=== PATIENT | male | born 1945 | race Caucasian/White ===

== ENCOUNTER → 2016-12-17 | Outpatient (CLI) | payer OTHER, MEDICARE ==
[2016-12-17 13:30] LABS: ALT/SGPT 36 U/L (12-78); BLOOD UREA NITROGEN 15 mg/dl (7-18); BUN/CREATININE RATIO 13.5 (10-20); CARBON DIOXIDE 24 mmol/L (21-32); CHLORIDE 109 mmol/L (98-107); CHOLESTEROL 145 mg/dl (0-200); GLUCOSE,FASTING 111 mg/dl (70-99); SODIUM 140 mmol/L (136-145)
[2016-12-17 13:41] LABS: ALB/GLOB RATIO 1.1 (0.9-2); ALKALINE PHOSPHATASE 58 U/L (45-117); AST/SGOT 23 U/L (15-37); CHOLESTEROL/HDL RATIO 3.1; HDL CHOLESTEROL 47 mg/dl; LDL CHOLESTEROL CALCULATED 81 mg/dl; TRIGLYCERIDES 83 mg/dl (0-150); VERY LOW DENSITY LIPOPROT CALC 17 mg/dl
== END | disposition home or self-care (01) ==
LOC: EDSEX → C.LABPBG 07:59
PROVIDERS: ATTEND Physician Assistant
DX: Z00.00 Encounter for general adult medical examination without abnormal findings (principal); E03.9 Hypothyroidism, unspecified; E55.9 Vitamin D deficiency, unspecified

== ENCOUNTER → 2016-12-21 | Outpatient (CLI) | payer OTHER, MEDICARE ==
[2016-12-21 12:45] LABS: ESTIMATED AVERAGE GLUCOSE 123 mg/dl; HA1C FLAG Normal (Normal)
== END | disposition home or self-care (01) ==
LOC: EDSEX → C.LABPBG 08:06
PROVIDERS: ATTEND Physician Assistant
DX: R73.01 Impaired fasting glucose (principal)

== ENCOUNTER → 2017-05-14 | Outpatient (CLI) | payer OTHER, MEDICARE ==
[2017-05-14 13:19] LABS: ALT/SGPT 33 U/L (12-78); AST/SGOT 22 U/L (15-37); BLOOD UREA NITROGEN 14 mg/dl (7-18); CALCIUM 9.1 mg/dl (8.5-10.1); CARBON DIOXIDE 26 mmol/L (21-32); CREATININE 1.15 mg/dl (0.60-1.40); GLUCOSE,FASTING 103 mg/dl (70-99); SODIUM 138 mmol/L (136-145); TOTAL PROTEIN 7.6 gm/dl (6.4-8.2)
[2017-05-14 13:30] LABS: ALKALINE PHOSPHATASE 63 U/L (45-117); CHOLESTEROL 124 mg/dl (0-200); LDL CHOLESTEROL CALCULATED 53 mg/dl
== END | disposition home or self-care (01) ==
LOC: C.LABPBG 07:50
PROVIDERS: ATTEND Physician Assistant
DX: Z00.00 Encounter for general adult medical examination without abnormal findings (principal); E78.5 Hyperlipidemia, unspecified; E03.9 Hypothyroidism, unspecified

== ENCOUNTER 2023-11-10 11:45 | Inpatient (IN) ==
--- NOTE | 2023-11-10 12:27 | XRay Report ---
XR chest 1V portable HISTORY: 78 years-old Male Sepsis COMPARISON: None TECHNIQUE: AP view of the chest FINDINGS: Cardiomediastinal and hilar silhouettes are within normal limits. No pneumothorax or pleural effusion . Bones appear grossly intact. Spondylitic spurring of the spine. IMPRESSION: No acute process. ACT 112: Negative or not required by law. The above report was generated using voice recognition software. It may contain grammatical, syntax o r spelling errors. Electronically signed by: Ilan Washington M.D. 11/10/2023 12:26 PM
--- NOTE | 2023-11-10 12:44 | Emergency Department Note ---
Impression & Plan Acute confusion, Hallucinations, DONALDO (acute kidney injury), Acute dehydration, Acute UTI ED Provider Note NAME: SHAILA LAMBERT AGE: 78 SEX: M : 1945 ARRIVES VIA: Walk-In INFORMANT: [Patient][daughter] ED PROVIDER(S): [Victor Manuel Martinez MD] CHIEF COMPLAINT: Urinary symptoms, hallucinating HISTORY OF PRESENT ILLNESS: The patient is a 78-year-old male whose had some confusion for about a month and then some hallucinations in the last week. His family and neighbors have noticed that he is seeing things that are not present. He is convinced that the things are real. Patient denies one-sided weakness, he does not have any urinary complaints really. There is no cough or congestion or shortness of breath. No headache. No diarrhea. He has no history of dementia. The patient went to the doctor's office, given the hallucinations, he was referred to the ER, there was concern for UTI based on a urine dip. There is no new prescribed medication or [id number] medication use. PMHx/PSHx/Social Hx: See Below PHYSICAL EXAM: GENERAL: Patient is in no acute distress. HEENT: No acute trauma, normocephalic atraumatic, mucous membranes dry, no nasal congestion. NECK: No stridor, no adenopathy, no meningismus, trachea is midline. LUNGS: Clear to auscultation bilaterally, no wheeze, no rhonchi, breath sounds equal. HEART: Without murmurs gallops or rubs, regular rate and rhythm. ABDOMEN: Soft, nontender, no peritonitis. EXTREMITIES: No cyanosis, full range of motion of all the joints without pain or difficulty. NEUROLOGIC: Awake and alert, no acute motor or sensory deficits, no focal weakness. No speech slur or facial droop, no extremity drift or cerebellar dysfunction. SKIN: No jaundice, no diaphoresis. DIFFERENTIAL DIAGNOSIS: Dehydration, intracranial bleed or mass, UTI, anemia, electrolyte imbalance, among others. EMERGENCY DEPARTMENT PROCEDURES: MEDICAL DECISION MAKING: There is no leukocytosis or concerning anemia. There is a normal platelet count. No coagulopathy. There is evidence for acute kidney injury with a creatinine of 2.11. No electrolyte abnormality in need of emergent correction. Lactic acid level is not elevated making severe sepsis less likely. There is no concerning liver enzyme elevation. Procalcitonin is not elevated. Urinalysis does not suggest infection. Brain CT shows no acute bleed or mass effect. ECG shows a sinus rhythm, PVCs were seen. No acute ST elevation. Cardiac enzyme testing x 1 is not consistent with acute cardiac injury. Chest x-ray did not show pneumonia or CHF. Abdominal and pelvis CT results are pending. On exam, patient was adamant that what he was seeing was real--he did not feel he was hallucinating. He was not febrile, he was not toxic. The patient received 2 L of IV saline for hydration. He was given IV ceftriaxone as antibiotic therapy. Given the confusion, hallucinations, the acute kidney injury and the UTI, I do think a hospital stay is warranted. I spoke with the patient and his daughter, I did speak with case management. The on-call hospitalist was consulted. Certainly, the UTI coupled with the acute kidney injury may be leading to his confusion/hallucinations. Prior/Outside records/notes reviewed: Today's outpatient family practice notes describing his presentation and the concern for infection/UTI. ECG per my interpretation: Indication was confusion. The ECG shows a sinus rhythm with some occasional PVCs. The rate is 91. There is no acute ST elevation, QTc is 440. Continuous Cardiac Monitoring per my interpretation: An order was placed for continuous cardiac monitoring. The monitor shows a rate of 97 with normal sinus rhythm. Imaging/x-ray results per my interpretation: Chest x-ray does not show pneumonia, CHF or pneumothorax. Chronic Medical/Social conditions affecting care: Advanced age. Care/Management discussed with: Case management, the on-call hospitalist. Level of care consideration(s): After review of the information above and other included data: --I believe the patient requires escalation of care to admission DISPOSITION: Admission Past Med/Surg History Problem List (Updated 11/10/23 @ 15:37 by Victor Manuel Martinez MD) Acute UTI (Acute) Acute dehydration (Acute) DONALDO (acute kidney injury) (Acute) Hallucinations (Acute) Acute confusion (Acute) Dysfunction of right eustachian tube Tinnitus of left ear Sensorineural hearing loss (SNHL) of right ear with restricted hearing of left ear Vitamin D deficiency Prediabetes Hypothyroidism Hypertension Hyperlipidemia Medical History History of gout Surgical History History of hand surgery History of surgery on arm Family History Father Hypertension Myocardial infarction, Onset Age: 52 Coronary heart disease Brother Diabetes Hypertension Kidney disease Dementia Mother Gallbladder disease Hypertension Aunt Breast cancer, Onset Age: 60 Denies family history of Ovarian cancer Prostate cancer Colorectal cancer Social History Smoking Status: Never smoker Second Hand Exposure: No; Do You Dip or Chew Tobacco: No; Hx Alcohol Use: No Hx Substance Use: No Preferred Language: Montenegrin Communication Ability: Effective Visual Impairment: No Limitations Hearing Ability: Normal 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 Beliefs That Will Affect Care: None marital status: Current Living Situation: Alone current occupational status: retired current occupation: banker Feels Safe at Home: Yes Diet: regular Diet Comment: regular caffeine: Yes (Coffee 1 cup per day.) during the past year weight has: remained stable Dental Care, Regularly: Yes Physical Activity Frequency: Daily Seatbelt Use: always Sunscreen Use: Yes Allergies Allergies Allergy/AdvReac Type Severity Reaction Status Date / Time No Known Drug Allergies Allergy Verified 11/10/23 10:29 Home Meds Home Medications Medication Instructions Recorded Confirmed cholecalciferol (vitamin D3) 125 5,000 units PO DAILY #90 tabs 01/08/19 11/10/23 mcg (5,000 unit) tablet Previous Rx's Medication Instructions Recorded amlodipine 10 mg tablet 10 mg PO DAILY #90 tabs 08/20/23 benazepril 40 mg tablet 40 mg PO DAILY #90 tabs 08/20/23 levothyroxine 50 mcg tablet 50 mcg PO DAILY #90 tabs 08/20/23 metoprolol tartrate 25 mg tablet 25 mg PO BID #180 tabs 08/20/23 rosuvastatin 10 mg tablet 10 mg PO DAILY #90 tabs 08/20/23 Results & Data (ED) Vital Signs Vital Signs - 24 hr 11/10/23 11:54 11/10/23 13:00 Temperature 36.3 C L Temperature Source Temporal Artery Scan Pulse Rate 97 H 75 Respiratory Rate 16 Respiratory Effort / Characteristics Non-Labored Respiratory Depth Normal Blood Pressure 130/79 Blood Pressure Mean 96 Pulse Oximetry 96 Oxygen Delivery Method Room Air Sepsis Recent Fever Within 48 Hours No Sepsis New/Unexplained Change in Mental Status No Sepsis Action Taken by Nursing No Action Required Home Medications Current Medication List: was personally reviewed by me Laboratory Data Attestation: I reviewed the patient's lab results. 11/10/23 12:18 11/10/23 12:18 Lab Results 11/10/23 11/10/23 Range/Units 12:18 14:07 WBC 8.68 (4.8-10.8) K/ul RBC 5.28 (4.70-6.10) M/uL Hgb 15.1 (14.0-18.0) g/dl Hct 45.9 (42.0-52.0) % MCV 86.9 (80.0-100.0) fL MCH 28.6 (25.0-34.0) pg MCHC 32.9 (32.0-36.0) g/dL RDW Std Deviation 45.9 (36.4-46.3) fL RDW Coeff of Ezequiel 14.4 (11.5-14.5) % Plt Count 260 (130-400) K/uL MPV 9.5 (9.4-12.4) fL Immature Gran % (Auto) 0.5 % Neut % (Auto) 61.5 % Lymph % (Auto) 28.2 % [place] % (Auto) 8.2 % Eos % (Auto) 0.8 % Baso % (Auto) 0.8 % Neut # (Auto) 5.34 (1.40-6.50) K/uL Lymph # (Auto) 2.45 (1.20-3.40) K/uL [place] # (Auto) 0.71 H (0.11-0.59) K/uL Eos # (Auto) 0.07 (0.00-0.50) K/uL Baso # (Auto) 0.07 (0.00-0.20) K/uL Immature Gran # (Auto) 0.04 (0.01-0.20) K/uL PT 11.4 (9.0-12.0) Seconds INR 1.1 (0.9-1.1) APTT 24 (21-31) Seconds PTT Ratio 0.9 Sodium 139 (136-145) mmol/L Potassium 3.9 (3.5-5.1) mmol/L Chloride 104 (98-107) mmol/L Carbon Dioxide 23 (21-32) mmol/L Anion Gap 12 H (3-11) BUN 27 H (6-23) mg/dl Creatinine 2.11 H (0.6-1.4) mg/dl Est Cr Clr Drug Dosing 34.5 ml/min Est GFR ( Amer) 34.2 ml/min Est GFR (Non-Af Amer) 29.5 ml/min BUN/Creatinine Ratio 12.8 (10-20) Glucose 116 H (70-99(Fasting)) mg/dl Lactate 1.3 (0.4-2.0) mmol/L Calcium 10.1 (8.6-10.3) mg/dl Magnesium 2.0 (1.7-2.4) mg/dl Total Bilirubin 1.0 (0.2-1.0) mg/dl AST 23 (13-39) U/L ALT 15 (7-52) U/L Alkaline Phosphatase 65 (34-104) U/L Troponin I High Sens 4.9 (0-20) pg/ml Total Protein 8.4 H (6.0-8.3) gm/dl Albumin 5.0 (3.4-5.0) gm/dl Globulin 3.4 (2.5-4.0) gm/dl Albumin/Globulin Ratio 1.5 (0.9-2) Procalcitonin 0.12 (0-0.5) ng/ml Urine Color Yellow Urine Appearance Turbid A (Clear) Urine pH 5.5 (4.5-7.5) Ur Specific [place] 1.012 (1.000-1.030) Urine Protein Trace H (Negative) Urine Glucose (UA) Negative (Negative) Urine Ketones Trace H (Negative) Urine Blood 2+ H (Negative) Urine Nitrite Positive A (Negative) Urine Bilirubin Negative (Negative) Urine Urobilinogen Negative (Negative) Ur Leukocyte Esterase 3+ H (Negative) Urine WBC (Auto) >50 H (0-5) /hpf Urine RBC (Auto) 0-2 (0-2) /hpf U Hyaline Cast (Auto) 6-10 H (0-2) /lpf U Epithel Cells (Auto) 0-2 (0-2) /hpf Urine Bacteria (Auto) 4+ H (None Seen) Urine Yeast Present A (None Prsent) Administered Medications Discontinued Medications Sodium Chloride (Nss) 500 mls @ 999 mls/hr IV .Q31M ONE Stop: 11/10/23 12:58 Last Infusion: 11/10/23 14:01 Dose: Infused Documented By: [facility] Admin: 11/10/23 12:55 Dose: 999 mls/hr Documented By: [facility] Sodium Chloride (Nss) 500 mls @ 999 mls/hr IV .Q31M ONE Stop: 11/10/23 13:09 Last Infusion: 11/10/23 14:01 Dose: Infused Documented By: [facility] Admin: 11/10/23 12:55 Dose: 999 mls/hr Documented By: [facility] Sodium Chloride (Nss) 1,000 mls @ 999 mls/hr IV .Q1H1M ONE Stop: 11/10/23 14:48 Last Admin: 11/10/23 14:06 Dose: 999 mls/hr Documented By: [facility] Imaging Data Radiologist's Impression: Chest X-Ray 11/10/23 12:00 XR chest 1V portable HISTORY: 78 years-old Male Sepsis COMPARISON: None TECHNIQUE: AP view of the chest FINDINGS: Cardiomediastinal and hilar silhouettes are within normal limits. No pneumothorax or pleural effusion. Bones appear grossly intact. Spondylitic spurring of the spine. IMPRESSION: No acute process. ACT 112: Negative or not required by law. The above report was generated using voice recognition software. It may contain grammatical, syntax or spelling errors. Electronically signed by: Ilan Washington M.D. 11/10/2023 12:[address] 11/10/23 12:28 CT SCAN OF THE BRAIN WITHOUT IV CONTRAST CLINICAL HISTORY: Change in mental status. Hallucinations. COMPARISON STUDY: No priors. TECHNIQUE: Unenhanced axial CT scan of the brain is performed from the vertex to the skull base. A dose lowering technique was utilized adhering to the principles of ALARA. CT DOSE: 625.8 mGy.cm FINDINGS: Brain parenchyma: There is age-related involutional change noting minimal microangiopathic disease. There is no hemorrhage, mass effect, or evidence of acute territorial ischemia by CT criteria. Dobson-white matter differentiation is preserved. No extra-axial fluid collection is seen. Ventricles, sulci, cisterns: Prominent secondary to involutional change. Intracranial vasculature: There is atherosclerotic calcification of the cavernous carotid and vertebral arteries. Calvarium: Unremarkable. Sinuses and mastoids: The visualized paranasal sinuses are clear. The mastoid air cells are well pneumatized. Orbits: The bony orbits are grossly intact. IMPRESSION: There is no hemorrhage, mass effect, or evidence of acute territorial ischemia by CT criteria. ACT 112: Negative or not required by law. Electronically signed by: Victor Manuel Rg M.D. 11/10/2023 12:59 PM Discharge Plan Visit Data Chief Complaint: Urinary Symptoms Stated Complaint: HALLUCINATING, UTI , REF BY DOC ED Provider: Victor Manuel Martinez Discharge Problem: Acute confusion, Hallucinations, DONALDO (acute kidney injury), Acute dehydration, Acute UTI Patient Disposition: Admitted As Inpatient Condition: Fair Forms Stand Alone Forms: [facility] [employer] Prescriptions Prescriptions: No Action amlodipine 10 mg tablet 10 mg PO DAILY Qty: 90 3RF benazepril 40 mg tablet 40 mg PO DAILY Qty: 90 3RF levothyroxine 50 mcg tablet 50 mcg PO DAILY Qty: 90 1RF metoprolol tartrate 25 mg tablet 25 mg PO BID Qty: 180 3RF rosuvastatin 10 mg tablet 10 mg PO DAILY Qty: 90 3RF cholecalciferol (vitamin D3) 5,000 unit tablet 5,000 units PO DAILY Qty: 90 Referrals Referrals: Erica Ybarra DO [Primary Care Provider] -
[2023-11-10 12:55] LABS: Basophils # (auto) 0.07 K/uL (0.00-0.20); Basophils % (auto) 0.8 %; Eosinophils # (auto) 0.07 K/uL (0.00-0.50); Eosinophils % (auto) 0.8 %; Hematocrit (blood only) 45.9 % (42.0-52.0); Hemoglobin 15.1 g/dl (14.0-18.0); Immature Granulocytes # (auto) 0.04 K/uL (0.01-0.20); Immature Granulocytes % (auto) 0.5 %; Lymphocytes # (auto) 2.45 K/uL (1.20-3.40); Lymphocytes % (auto) 28.2 %; Mean Corpuscular Hemoglobin 28.6 pg (25.0-34.0); Mean Corpuscular Hgb Conc 32.9 g/dL (32.0-36.0); Mean Corpuscular Volume 86.9 fL (80.0-100.0); Mean Platelet Volume 9.5 fL (9.4-12.4); Monocytes # (auto) 0.71 K/uL (0.11-0.59); Monocytes % (auto) 8.2 %; Neutrophils # (auto) 5.34 K/uL (1.40-6.50); Neutrophils % (auto) 61.5 %; Platelet Count 260 K/uL (130-400); RDW Coefficient of Variation 14.4 % (11.5-14.5); RDW Standard Deviation 45.9 fL (36.4-46.3); Red Blood Count 5.28 M/uL (4.70-6.10); White Blood Count 8.68 K/ul (4.8-10.8)
[2023-11-10] MEDS: SODIUM CHLORIDE 0.9% 500 ML IV ONE ×2 (12:55)
--- NOTE | 2023-11-10 12:57 | Electrocardiogram Report ---
Test Reason : Blood Pressure : / mmHG Vent. Rate : 091 BPM Atrial Rate : 091 BPM P-R Int : 164 ms QRS Dur : 090 ms QT Int : 358 ms P-R-T Axes : 053 -04 022 degrees QTc Int : 440 ms Sinus rhythm with occasional Premature ventricular complexes Otherwise normal ECG No previous ECGs available Confirmed by Sherman Chang ([id number]) on 11/10/2023 12:57:01 PM Referred By: Confirmed By:Dominguez Chang
--- NOTE | 2023-11-10 13:01 | CT Scan Report ---
CT SCAN OF THE BRAIN WITHOUT IV CONTRAST CLINICAL HISTORY: Change in mental status. Hallucinations. COMPARISON STUDY: No priors. TECHNIQUE: Unenhanced axial CT scan of the brain is performed from the vertex to the skull base. A do se lowering technique was utilized adhering to the principles of ALARA. CT DOSE: 625.8 mGy.cm FINDINGS: Brain parenchyma: There is age-related involutional change noting minimal microangiopathic disease. T here is no hemorrhage, mass effect, or evidence of acute territorial ischemia by CT criteria. Dobson-wh ite matter differentiation is preserved. No extra-axial fluid collection is seen. Ventricles, sulci, cisterns: Prominent secondary to involutional change. Intracranial vasculature: There is atherosclerotic calcification of the cavernous carotid and vertebr al arteries. Calvarium: Unremarkable. Sinuses and mastoids: The visualized paranasal sinuses are clear. The mastoid air cells are well pneu matized. Orbits: The bony orbits are grossly intact. IMPRESSION: There is no hemorrhage, mass effect, or evidence of acute territorial ischemia by CT [facility]. ACT 112: Negative or not required by law. Electronically signed by: Victor Manuel Rg M.D. 11/10/2023 12:59 PM
[2023-11-10 13:08] LABS: INR 1.1 (0.9-1.1); Partial Thromboplastin Ratio 0.9; Partial Thromboplastin Time 24 Seconds (21-31); Prothrombin Time 11.4 Seconds (9.0-12.0)
[2023-11-10 13:13] LABS: Alanine Aminotransferase 15 U/L (7-52); Albumin Globulin Ratio 1.5 (0.9-2); Alkaline Phosphatase 65 U/L (34-104); Anion Gap 12 (3-11); Aspartate Aminotransferase 23 U/L (13-39); BUN Creatinine Ratio 12.8 (10-20); Blood Urea Nitrogen 27 mg/dl (6-23); Calcium 10.1 mg/dl (8.6-10.3); Carbon Dioxide 23 mmol/L (21-32); Chloride 104 mmol/L (98-107); Creatinine Clr Calc Pharmacy 34.5 ml/min; Est GFR (African American) 34.2 ml/min; Est GFR (Non-African American) 29.5 ml/min; Globulin 3.4 gm/dl (2.5-4.0); Glucose 116 mg/dl (70-99(Fasting)); Potassium 3.9 mmol/L (3.5-5.1); Sodium 139 mmol/L (136-145); Total Protein 8.4 gm/dl (6.0-8.3)
[2023-11-10 13:19] LABS: Troponin I High Sensitivity 4.9 pg/ml (0-20)
[2023-11-10] MEDS: SODIUM CHLORIDE 0.9% 1,000 ML IV ONE (14:06)
[2023-11-10 14:52] LABS: Appearance Urine Turbid (Clear); Bacteria Urine Automated 4+ (None Seen); Bilirubin Urine Negative (Negative); Blood Urine 2+ (Negative); Color Urine Yellow; Epithelial Cell Urine Auto 0-2 /hpf (0-2); Glucose Urine UA Negative (Negative); Ketones Urine Trace (Negative); Leukocyte Esterase Urine 3+ (Negative); Nitrite Urine Positive (Negative); Protein Urine Trace (Negative); RBC Urine Automated 0-2 /hpf (0-2); Specific Gravity Urine 1.012 (1.000-1.030); Urobilinogen Urine Negative (Negative); WBC Urine Automated >50 /hpf (0-5); pH Urine 5.5 (4.5-7.5)
[2023-11-10] MEDS: cefTRIAXone SODIUM 2,000 MG/50 ML BAG IV STA (16:01)
--- NOTE | 2023-11-10 16:29 | History & Physical Report ---
Date of Service November 10, 2023 Assessment & Plan (1) Acute UTI: Plan: Symptoms started 2 weeks ago with acute confusion and foul smelling urine at that time Ceftriaxone 2g IV daily, Follow up urine and blood cultures No acute infectious findings on CT, PSA/ESR/CRP pending but low suspicion of prostatitis (2) DONALDO (acute kidney injury): Plan: Suspect due to poor oral intake with current infection and benazepril use, although euvolemic on exam Hold benazepril LR @ 125 ml/hr overnight Repeat Cr in AM (3) Hallucinations: Plan: Binocular Suspect due to current infection as above CT head without acute findings Reassess following treatment for infection Consider full cognitive testing once back to baseline with PCP and eye testing with ophthalmology Avoid benzodiazepines (4) Hypothyroidism: Plan: TSH WNL in January, will repeat with AM labs given acute mental status change Continue levothyroxine (5) Hypertension: Plan: Continue metoprolol and amlodipine Hold Benazepril as above Plan VTE Prophylaxis - heparin 5000 units SQ BID Diet - regular Disposition - admit to med/surg Admission and Anticipated Discharge Date Admission Date: November 10, 2023 History of Present Illness Chief Complaint: Hallucinations Primary Care Provider: Erica Ybarra DO Jorge Live is a 78 year old male who presents to the ER with 3-4 days of hallucinations. Prior to this having confusion for the last few weeks. He was seen by PCP today and recommended coming to the ER due to UA which appeared infected and lives alone. The patient reports seeing pictures moving on his wall and exotic animals at the bottom of the garden. At the time he felt these were real but neighbors and daughter confirmed they were not and he believes them. He has never had hallucinations before and denies any other problems with his vision. Daughter concerned about UTI as urine darker than usual and having more difficulty passing urine. He reports no prostate symptoms prior to recent onset of symptoms. He notes 2 weeks ago having foul smelling urine but this resolved. No flank pain, fever or chills. Allergies Allergy/AdvReac Type Severity Reaction Status Date / Time No Known Drug Allergies Allergy Verified 11/10/23 10:29 Home Medications Medication Instructions Recorded Confirmed Type cholecalciferol (vitamin D3) 125 5,000 units PO DAILY #90 tabs 01/08/19 11/10/23 History mcg (5,000 unit) tablet amlodipine 10 mg tablet 10 mg PO DAILY #90 tabs 08/20/23 11/10/23 Rx benazepril 40 mg tablet 40 mg PO DAILY #90 tabs 08/20/23 11/10/23 Rx levothyroxine 50 mcg tablet 50 mcg PO DAILY #90 tabs 08/20/23 11/10/23 Rx metoprolol tartrate 25 mg tablet 25 mg PO BID #180 tabs 08/20/23 11/10/23 Rx rosuvastatin 10 mg tablet 10 mg PO DAILY #90 tabs 08/20/23 11/10/23 Rx Past Med/Surg History Problem List (Updated 11/10/23 @ 21:45 by Darlin Orosco) Acute UTI (Acute) Acute dehydration (Acute) DONALDO (acute kidney injury) (Acute) Hallucinations (Acute) Acute confusion (Acute) Dysfunction of right eustachian tube Tinnitus of left ear Sensorineural hearing loss (SNHL) of right ear with restricted hearing of left ear Vitamin D deficiency Prediabetes Hypothyroidism Hypertension Hyperlipidemia Medical History History of gout Surgical History History of hand surgery History of surgery on arm Family History Father Hypertension Myocardial infarction, Onset Age: 52 Coronary heart disease Brother Diabetes Hypertension Kidney disease Dementia Mother Gallbladder disease Hypertension Aunt Breast cancer, Onset Age: 60 Denies family history of Ovarian cancer Prostate cancer Colorectal cancer Social History Smoking Status: Never smoker Second Hand Exposure: No; Do You Dip or Chew Tobacco: No; Hx Alcohol Use: No Hx Substance Use: No Preferred Language: Malay Communication Ability: Effective Visual Impairment: No Limitations Hearing Ability: Normal Regional Sales Director Required: No Beliefs That Will Affect Care: None marital status: Current Living Situation: Alone current occupational status: retired current occupation: banker Other Information That Helps Us Care for You: No Feels Safe at Home: Yes Safety Concerns: Feels Safe At This Time Diet: regular Diet Comment: regular caffeine: Yes (Coffee 1 cup per day.) during the past year weight has: remained stable Dental Care, Regularly: Yes Physical Activity Frequency: Daily Seatbelt Use: always Sunscreen Use: Yes Assistive Devices: Glasses Review of Systems Review of Systems: All systems reviewed & are unremarkable except as noted in HPI & below Physical Exam Constitutional: WD/WN, vitals as above Eyes: PERRL, conjunctivae normal, anicteric sclerae ENMT: external ear and nose normal, oropharynx normal Respiratory: normal respiratory effort, lungs clear to auscultation Cardiovascular: RRR, no murmur, no edema Gastrointestinal (Abdomen): normal bowel sounds, soft, nontender, no hepatosplenomegaly Musculoskeletal: no cyanosis or clubbing, extremities motor strength 5/5 Skin: no rashes, warm and dry Neurologic: moves all extremities and awake; no focal motor deficits and not confused Psychiatric: A+Ox3, euthymic affect Genitourinary: no CVA tenderness Results & Data Results & Data Vital Signs (Past 12 Hours) Vital Signs Temp Pulse Resp BP Pulse Ox O2 Del Method 11/10/23 13:00 75 11/10/23 11:54 36.3 C L 97 H 16 130/79 96 Room Air Laboratory Results Abnormal lab results 11/10/23 11/10/23 Range/Units 12:18 14:07 Mckenzie # (Auto) 0.71 H (0.11-0.59) K/uL Anion Gap 12 H (3-11) BUN 27 H (6-23) mg/dl Creatinine 2.11 H (0.6-1.4) mg/dl Glucose 116 H (70-99(Fasting)) mg/dl Total Protein 8.4 H (6.0-8.3) gm/dl Urine Appearance Turbid A (Clear) Urine Protein Trace H (Negative) Urine Ketones Trace H (Negative) Urine Blood 2+ H (Negative) Urine Nitrite Positive A (Negative) Ur Leukocyte Esterase 3+ H (Negative) Urine WBC (Auto) >50 H (0-5) /hpf U Hyaline Cast (Auto) 6-10 H (0-2) /lpf Urine Bacteria (Auto) 4+ H (None Seen) Urine Yeast Present A (None Prsent) Diagnostic Findings CT SCAN OF THE BRAIN WITHOUT IV CONTRAST CLINICAL HISTORY: Change in mental status. Hallucinations. COMPARISON STUDY: No priors. TECHNIQUE: Unenhanced axial CT scan of the brain is performed from the vertex to the skull base. A dose lowering technique was utilized adhering to the principles of ALARA. CT DOSE: 625.8 mGy.cm FINDINGS: Brain parenchyma: There is age-related involutional change noting minimal microangiopathic disease. There is no hemorrhage, mass effect, or evidence of acute territorial ischemia by CT criteria. Dobson-white matter differentiation is preserved. No extra-axial fluid collection is seen. Ventricles, sulci, cisterns: Prominent secondary to involutional change. Intracranial vasculature: There is atherosclerotic calcification of the cavernous carotid and vertebral arteries. Calvarium: Unremarkable. Sinuses and mastoids: The visualized paranasal sinuses are clear. The mastoid air cells are well pneumatized. Orbits: The bony orbits are grossly intact. IMPRESSION: There is no hemorrhage, mass effect, or evidence of acute territorial ischemia by CT criteria. XR chest 1V portable HISTORY: 78 years-old Male Sepsis COMPARISON: None TECHNIQUE: AP view of the chest FINDINGS: Cardiomediastinal and hilar silhouettes are within normal limits. No pneumothorax or pleural effusion. Bones appear grossly intact. Spondylitic spurring of the spine. IMPRESSION: No acute process. CT SCAN OF THE ABDOMEN AND PELVIS WITHOUT IV CONTRAST CLINICAL HISTORY: Urinary tract infection. COMPARISON STUDY: No priors. TECHNIQUE: CT scan of the abdomen and pelvis is performed from the lung bases to the proximal femora. Images are reviewed in the axial, sagittal, and coronal planes. IV contrast was not administered for this examination. A dose lowering technique was utilized adhering to the principles of ALARA. CT DOSE: 1352.94 mGy.cm FINDINGS: Lung bases: The heart is normal in size and without pericardial effusion. There are scattered calcified granulomas. The lung bases are otherwise clear noting b ibasilar scarring/atelectasis. A small hiatal hernia is noted. Liver: The unenhanced liver is normal in size, contour, and attenuation. There is no intrahepatic biliary ductal dilatation. Gallbladder: There are calcified gallstones with no CT evidence of acute cholecystitis. Spleen: Normal in size and attenuation. Pancreas: Unremarkable. Adrenal glands: Unremarkable. Kidneys: The unenhanced kidneys are normal in size and without hydronephrosis. There is a 6 mm nonobstructing calculus in the left upper pole. There are at least 5 nonobstructing right renal calculi which measure up to 3 mm. No ureteral stone is seen. There is no evidence of contour deforming renal mass lesion. Abdominal vasculature: The abdominal aorta is normal in course and caliber noting moderate to advanced atherosclerotic calcification. Bowel: There is moderate colonic diverticulosis without CT evidence of acute diverticulitis. No bowel obstruction is seen. Mild fecal retention is seen throughout the colon. A duodenal diverticulum is incidentally noted. The appendix is well-visualized and normal. Peritoneum: There is no intraperitoneal free air or abdominal ascites. Lymphadenopathy: None. Pelvic viscera: The prostate gland is enlarged and heterogeneous. The bladder is distended, and the wall appears thickened/trabeculated indicating chronic outlet obstruction. There are bilateral fat-containing groin hernias. Skeletal structures: The skeletal structures are osteopenic. There is moderate lumbosacral spondylosis as well as scoliosis. No lytic or blastic lesions are seen. IMPRESSION: 1. No acute infectious or inflammatory findings are identified in the abdomen or pelvis. 2. Cholelithiasis. 3. Bilateral nephrolithiasis. 4. Colonic diverticulosis without CT evidence of acute diverticulitis. 5. Additional findings as above. Medications Administered ER medications given: Normal saline 500 mL bolus x 2 Normal saline 1000 mL bolus Ceftriaxone 2 g IV ECG Rate (beats per minute): 91 Rhythm: normal sinus Findings: + PVC Comparison ECG Date: no prior available Code Status & VTE Plan Code Status Full VTE Prophylaxis Plan VTE Prophylaxis will be ordered: Yes PG Care Time/CCT Total # of Minutes Spent Total Time Spent with Patient: Total time spent is greater than 50% in coordination of care (as documented) at patient's floor/unit and/or counseling patient: Coding Level of Care Code 99084 INT INP/OBS CARE 2/55MIN Diagnoses Acute UTI N39.0 DONALDO (acute kidney injury) N17.9 Hallucinations R44.3 Hypothyroidism E03.9 Hypertension I10
--- NOTE | 2023-11-10 17:07 | CT Scan Report ---
CT SCAN OF THE ABDOMEN AND PELVIS WITHOUT IV CONTRAST CLINICAL HISTORY: Urinary tract infection. COMPARISON STUDY: No priors. TECHNIQUE: CT scan of the abdomen and pelvis is performed from the lung bases to the proximal femora. Images are reviewed in the axial, sagittal, and coronal planes. IV contrast was not administered for this examination. A dose lowering technique was utilized adhering to the principles of ALARA. CT DOSE: 1352.94 mGy.cm FINDINGS: Lung bases: The heart is normal in size and without pericardial effusion. There are scattered calcifi ed granulomas. The lung bases are otherwise clear noting bibasilar scarring/atelectasis. A small hiat al hernia is noted. Liver: The unenhanced liver is normal in size, contour, and attenuation. There is no intrahepatic regina iary ductal dilatation. Gallbladder: There are calcified gallstones with no CT evidence of acute cholecystitis. Spleen: Normal in size and attenuation. Pancreas: Unremarkable. Adrenal glands: Unremarkable. Kidneys: The unenhanced kidneys are normal in size and without hydronephrosis. There is a 6 mm nonobs tructing calculus in the left upper pole. There are at least 5 nonobstructing right renal calculi whi ch measure up to 3 mm. No ureteral stone is seen. There is no evidence of contour deforming renal mas s lesion. Abdominal vasculature: The abdominal aorta is normal in course and caliber noting moderate to advance d atherosclerotic calcification. Bowel: There is moderate colonic diverticulosis without CT evidence of acute diverticulitis. No bowel obstruction is seen. Mild fecal retention is seen throughout the colon. A duodenal diverticulum is i ncidentally noted. The appendix is well-visualized and normal. Peritoneum: There is no intraperitoneal free air or abdominal ascites. Lymphadenopathy: None. Pelvic viscera: The prostate gland is enlarged and heterogeneous. The bladder is distended, and the w all appears thickened/trabeculated indicating chronic outlet obstruction. There are bilateral fat-con taining groin hernias. Skeletal structures: The skeletal structures are osteopenic. There is moderate lumbosacral spondylosi s as well as scoliosis. No lytic or blastic lesions are seen. IMPRESSION: 1. No acute infectious or inflammatory findings are identified in the abdomen or pelvis. 2. Cholelithiasis. 3. Bilateral nephrolithiasis. 4. Colonic diverticulosis without CT evidence of acute diverticulitis. 5. Additional findings as above. ACT 112: Negative or not required by law. Electronically signed by: Victor Manuel Rg M.D. 11/10/2023 5:05 PM
[2023-11-10 17:59] LABS: C Reactive Protein < 0.50 mg/dl (0-0.5)
[2023-11-10] MEDS: METOPROLOL TARTRATE 25 MG TAB PO SCH (22:09)
[2023-11-11] MEDS: LEVOTHYROXINE SODIUM 50 MCG TABLET PO SCH (04:50)
[2023-11-11] MEDS: LACTATED RINGER'S 1,000 ML IV SCH (06:27)
[2023-11-11 07:25] LABS: Basophils # (auto) 0.06 K/uL (0.00-0.20); Basophils % (auto) 0.7 %; Eosinophils # (auto) 0.07 K/uL (0.00-0.50); Eosinophils % (auto) 0.8 %; Hemoglobin 12.6 g/dl (14.0-18.0); Immature Granulocytes # (auto) 0.02 K/uL (0.01-0.20); Immature Granulocytes % (auto) 0.2 %; Lymphocytes # (auto) 1.28 K/uL (1.20-3.40); Mean Corpuscular Hemoglobin 28.8 pg (25.0-34.0); Mean Corpuscular Hgb Conc 33.2 g/dL (32.0-36.0); Mean Platelet Volume 9.5 fL (9.4-12.4); Monocytes # (auto) 0.74 K/uL (0.11-0.59); Monocytes % (auto) 8.6 %; Neutrophils # (auto) 6.39 K/uL (1.40-6.50); Neutrophils % (auto) 74.7 %; Platelet Count 198 K/uL (130-400); RDW Coefficient of Variation 14.1 % (11.5-14.5); RDW Standard Deviation 44.9 fL (36.4-46.3); Red Blood Count 4.37 M/uL (4.70-6.10); White Blood Count 8.56 K/ul (4.8-10.8)
[2023-11-11 07:55] LABS: Albumin Globulin Ratio 1.5 (0.9-2); Albumin Level 3.8 gm/dl (3.4-5.0); Bilirubin,Total 0.8 mg/dl (0.2-1.0); Calcium 8.7 mg/dl (8.6-10.3); Est GFR (African American) 68.4 ml/min; Globulin 2.5 gm/dl (2.5-4.0); Potassium 4.1 mmol/L (3.5-5.1); Total Protein 6.3 gm/dl (6.0-8.3)
--- NOTE | 2023-11-11 08:09 | Hospitalist Progress Note ---
Date of Service November 11, 2023 Assessment & Plan (1) Acute UTI: Plan: Symptoms started 2 weeks ago with acute confusion and foul smelling urine at that time. Did report darker urine and drinking more fluids at home but worsened and w/ hallucinations and agreed to have his daughter bring him in Ceftriaxone 2g IV daily, Follow up urine and blood cultures No acute infectious findings on CT, PSA/ESR/CRP pending but low suspicion of prostatitis (ESR elevated 41 but normal CRP, PSA wnl 2.37). Procal 0.12 11/10 LR @ 125cc/hr ordered this morning, had received 2L NSS on admission (500cc x 2 followed by 1L NSS bolus). -> reduced IVF to 75cc/hr until eval PO intake given improvement in Cr from 2.1--> 1.19. -> Home benazepril on hold Ceftriaxone IV continued, urine cx w/ gram negative bacilli on preliminary - follow Blood cultures pending OT consulted, added PT consult. Red socks/fall precautions. Updated daughter in room (2) DONALDO (acute kidney injury): Plan: Suspect due to poor oral intake with current infection and benazepril use, although euvolemic on exam Hold benazepril IVF as above, Cr improved and decreased IVF rate for now and if keeping up w/ PO could consider discontinuing this afternoon (will time out for 1L) Monitor renal function (3) Hallucinations: Plan: Binocular -Suspect due to current infection as above CT head without acute findings Reassess following treatment for infection Consider full cognitive testing once back to baseline with PCP and eye testing with ophthalmology Avoid benzodiazepines TSH wnl on check appearing improved but still reported overnight and will continue to monitor. prevention of delirium rec and last time hospitalized (and only time) was ~30 yrs ago when went through [facility] (4) Hypothyroidism: Plan: TSH wnl, checked given acute MS change Continue Synthroid home dose (5) Hypertension: Plan: Continue metoprolol and amlodipine Hold Benazepril as above but consideration to resume in AM if renal function normalized/BP stable and keeping up w/ PO intake (6) Metabolic encephalopathy: Plan: as above, suspected 2nd to acute UTI/DONALDO/dehydration. IV abx as outlined and f/u urine/blood cultures. Renal function improved TSH wnl B12/lyme w/ AM labs for completeness Frequent orientation Of note, RBC but no blood, CK added to am labs but 174 and already received 2+L IVF. On 10mg crestor daily and could consider holding. Denied any joint pains, no rhabdo/muscle swelling on exam Improving (7) Constipation: Plan: reports has been several days since last BM, suspect worsened w/ dehydration. PSA not elevated, doubt prostatitis. hydration as above colace BID, senna HS. If renal function normalized in AM can consider adding miralax daily (8) Dehydration: Plan: improved but still slightly dry on exam. 1L IVF for today/JACOB on hold as above. Monitor I&O monitor on exam on repeat, BMP in AM Plan VTE Prophylaxis - heparin 5000 units SQ BID while inpatient continued inpatient stay, updated daughter at bedside 11/10 and hopeful dc next 24-48 hrs pending cultures/cognitive status Admission and Anticipated Discharge Date Admission Date: November 10, 2023 Supervising Physician Co-Signing Physician Notes The patient was not seen by me. The chart was reviewed. Case discussed with CLARISSE Ware. Agree with assessment and plan Subjective Eval this morning, daughter in room. Patient sitting up in bed, reports feeling alright. Knows in the hospital, initially thought it was Wednesday. No acute confusion at present but does continue with intermittent hallucinations and thought he was looking for [place] awards ceremony and asked about a meeting location outside his room in [facility] in ER last evening. Discussed suspect confusion/issues related to UTI/infection, DONALDO in setting of dehydration. He does endorse he noticed his urine was getting darker in color and so he drank more fluids. Discussed tea/coffee natural diuretics and encouraged more water/gatorade similar and hydration. Benazapril remains on hold, blood cultures ngtd but urine cx w/ gram negative bacilli and remains on IV abx. He reports he had to go urinate ths morning but no one was answering his stoll and he got up by himself even though he knew he shouldn;t. Red socks in place, encouraged to ring for assistance and wait for therapy evals to ensure stable on his feet. No RUQ pain or nausea/vomiting, LFTs wn but did discuss cholelithiasis on imaging and to monitor. He does note he hasn't moved his bowels for a couple of days and will also order bowel regimen. Results & Data Results & Data Vital Signs (Past 12 Hours) Vital Signs Temp Pulse Pulse Resp BP Pulse Ox O2 Del Method 11/11/23 07:04 36.6 C 68 16 109/69 93 Room Air 11/10/23 22:13 36.7 C 97 H 18 145/78 H 97 Room Air 11/10/23 20:51 100 H 16 140/99 11/10/23 20:48 100 H 12 11/10/23 20:36 98 H 2 L 11/10/23 20:27 96 H 23 Laboratory Results 11/11/23 11/10/23 11/10/23 Range/Units 06:58 16:31 14:07 WBC 8.56 (4.8-10.8) K/ul RBC 4.37 L (4.70-6.10) M/uL Hgb 12.6 L (14.0-18.0) g/dl Hct 38.0 L (42.0-52.0) % MCV 87.0 (80.0-100.0) fL MCH 28.8 (25.0-34.0) pg MCHC 33.2 (32.0-36.0) g/dL RDW Std Deviation 44.9 (36.4-46.3) fL RDW Coeff of Ezequiel 14.1 (11.5-14.5) % Plt Count 198 (130-400) K/uL MPV 9.5 (9.4-12.4) fL Immature Gran % (Auto) 0.2 % Neut % (Auto) 74.7 % Lymph % (Auto) 15.0 % [place] % (Auto) 8.6 % Eos % (Auto) 0.8 % Baso % (Auto) 0.7 % Neut # (Auto) 6.39 (1.40-6.50) K/uL Lymph # (Auto) 1.28 (1.20-3.40) K/uL [place] # (Auto) 0.74 H (0.11-0.59) K/uL Eos # (Auto) 0.07 (0.00-0.50) K/uL Baso # (Auto) 0.06 (0.00-0.20) K/uL Immature Gran # (Auto) 0.02 (0.01-0.20) K/uL ESR (0-20) mm/hr PT (9.0-12.0) Seconds INR (0.9-1.1) APTT (21-31) Seconds PTT Ratio Sodium 141 (136-145) mmol/L Potassium 4.1 (3.5-5.1) mmol/L Chloride 109 H (98-107) mmol/L Carbon Dioxide 25 (21-32) mmol/L Anion Gap 7 (3-11) BUN 19 (6-23) mg/dl Creatinine 1.19 D (0.6-1.4) mg/dl Est Cr Clr Drug Dosing 61.0 ml/min Est GFR ( Amer) 68.4 ml/min Est GFR (Non-Af Amer) 59.0 ml/min BUN/Creatinine Ratio 16.0 (10-20) Glucose 96 (70-99(Fasting)) mg/dl Lactate (0.4-2.0) mmol/L Calcium 8.7 (8.6-10.3) mg/dl Magnesium (1.7-2.4) mg/dl Total Bilirubin 0.8 (0.2-1.0) mg/dl AST 16 (13-39) U/L ALT 10 (7-52) U/L Alkaline Phosphatase 53 (34-104) U/L Troponin I High Sens (0-20) pg/ml C-Reactive Protein (0-0.5) mg/dl Total Protein 6.3 D (6.0-8.3) gm/dl Albumin 3.8 (3.4-5.0) gm/dl Globulin 2.5 (2.5-4.0) gm/dl Albumin/Globulin Ratio 1.5 (0.9-2) Prostate Specific Ag (0-4) ng/ml Procalcitonin (0-0.5) ng/ml TSH Pending Urine Color Cancelled Yellow Urine Appearance Cancelled Turbid A (Clear) Urine pH Cancelled 5.5 (4.5-7.5) Ur Specific [place] Cancelled 1.012 (1.000-1.030) Urine Protein Cancelled Trace H (Negative) Urine Glucose (UA) Cancelled Negative (Negative) Urine Ketones Cancelled Trace H (Negative) Urine Blood Cancelled 2+ H (Negative) Urine Nitrite Cancelled Positive A (Negative) Urine Bilirubin Cancelled Negative (Negative) Urine Urobilinogen Cancelled Negative (Negative) Ur Leukocyte Esterase Cancelled 3+ H (Negative) Urine WBC (Auto) Cancelled >50 H (0-5) /hpf Urine RBC (Auto) Cancelled 0-2 (0-2) /hpf U Hyaline Cast (Auto) Cancelled 6-10 H (0-2) /lpf U Epithel Cells (Auto) Cancelled 0-2 (0-2) /hpf Urine Bacteria (Auto) Cancelled 4+ H (None Seen) Ur Renal Epithelial Cell Cancelled [place]on Biurate Crystals Cancelled Calcium Oxalate Crystal Cancelled Leucine Crystals Cancelled Cystine Crystals Cancelled Uric Acid Crystals Cancelled Triple Phos Crystals Cancelled Sulfonamide Crystals Cancelled Cholesterol Crystals Cancelled Talc Crystals Cancelled Tyrosine Crystals Cancelled Hippuric Acid Crystals Cancelled Unidentified Crystals Cancelled Amorphous Sediment Cancelled Epithelial Casts Cancelled Hyaline Casts Cancelled Granular Casts Cancelled Waxy Casts Cancelled RBC Casts Cancelled WBC Casts Cancelled Other Casts Cancelled Urine Mucus Cancelled Urine Other Cancelled Urine Trichomonas Cancelled Urine Yeast Cancelled Present A (None Prsent) Urine Sperm Cancelled Ur Oval Fat Bodies Cancelled 11/10/23 Range/Units 12:18 WBC 8.68 (4.8-10.8) K/ul RBC 5.28 (4.70-6.10) M/uL Hgb 15.1 (14.0-18.0) g/dl Hct 45.9 (42.0-52.0) % MCV 86.9 (80.0-100.0) fL MCH 28.6 (25.0-34.0) pg MCHC 32.9 (32.0-36.0) g/dL RDW Std Deviation 45.9 (36.4-46.3) fL RDW Coeff of Ezequiel 14.4 (11.5-14.5) % Plt Count 260 (130-400) K/uL MPV 9.5 (9.4-12.4) fL Immature Gran % (Auto) 0.5 % Neut % (Auto) 61.5 % Lymph % (Auto) 28.2 % [place] % (Auto) 8.2 % Eos % (Auto) 0.8 % Baso % (Auto) 0.8 % Neut # (Auto) 5.34 (1.40-6.50) K/uL Lymph # (Auto) 2.45 (1.20-3.40) K/uL [place] # (Auto) 0.71 H (0.11-0.59) K/uL Eos # (Auto) 0.07 (0.00-0.50) K/uL Baso # (Auto) 0.07 (0.00-0.20) K/uL Immature Gran # (Auto) 0.04 (0.01-0.20) K/uL ESR 41 H (0-20) mm/hr PT 11.4 (9.0-12.0) Seconds INR 1.1 (0.9-1.1) APTT 24 (21-31) Seconds PTT Ratio 0.9 Sodium 139 (136-145) mmol/L Potassium 3.9 (3.5-5.1) mmol/L Chloride 104 (98-107) mmol/L Carbon Dioxide 23 (21-32) mmol/L Anion Gap 12 H (3-11) BUN 27 H (6-23) mg/dl Creatinine 2.11 H (0.6-1.4) mg/dl Est Cr Clr Drug Dosing 34.5 ml/min Est GFR ( Amer) 34.2 ml/min Est GFR (Non-Af Amer) 29.5 ml/min BUN/Creatinine Ratio 12.8 (10-20) Glucose 116 H (70-99(Fasting)) mg/dl Lactate 1.3 (0.4-2.0) mmol/L Calcium 10.1 (8.6-10.3) mg/dl Magnesium 2.0 (1.7-2.4) mg/dl Total Bilirubin 1.0 (0.2-1.0) mg/dl AST 23 (13-39) U/L ALT 15 (7-52) U/L Alkaline Phosphatase 65 (34-104) U/L Troponin I High Sens 4.9 (0-20) pg/ml C-Reactive Protein < 0.50 (0-0.5) mg/dl Total Protein 8.4 H (6.0-8.3) gm/dl Albumin 5.0 (3.4-5.0) gm/dl Globulin 3.4 (2.5-4.0) gm/dl Albumin/Globulin Ratio 1.5 (0.9-2) Prostate Specific Ag 2.374 (0-4) ng/ml Procalcitonin 0.12 (0-0.5) ng/ml TSH Urine Color Urine Appearance (Clear) Urine pH (4.5-7.5) Ur Specific [place] (1.000-1.030) Urine Protein (Negative) Urine Glucose (UA) (Negative) Urine Ketones (Negative) Urine Blood (Negative) Urine Nitrite (Negative) Urine Bilirubin (Negative) Urine Urobilinogen (Negative) Ur Leukocyte Esterase (Negative) Urine WBC (Auto) (0-5) /hpf Urine RBC (Auto) (0-2) /hpf U Hyaline Cast (Auto) (0-2) /lpf U Epithel Cells (Auto) (0-2) /hpf Urine Bacteria (Auto) (None Seen) Ur Renal Epithelial Cell Britt[place] Biurate Crystals Calcium Oxalate Crystal Leucine Crystals Cystine Crystals Uric Acid Crystals Triple Phos Crystals Sulfonamide Crystals Cholesterol Crystals Talc Crystals Tyrosine Crystals Hippuric Acid Crystals Unidentified Crystals Amorphous Sediment Epithelial Casts Hyaline Casts Granular Casts Waxy Casts RBC Casts WBC Casts Other Casts Urine Mucus Urine Other Urine Trichomonas Urine Yeast (None Prsent) Urine Sperm Ur Oval Fat Bodies Diagnostic Findings Chest X-Ray 11/10/23 12:00 XR chest 1V portable HISTORY: 78 years-old Male Sepsis COMPARISON: None TECHNIQUE: AP view of the chest FINDINGS: Cardiomediastinal and hilar silhouettes are within normal limits. No pneumothorax or pleural effusion. Bones appear grossly intact. Spondylitic spurring of the spine. IMPRESSION: No acute process. ACT 112: Negative or not required by law. The above report was generated using voice recognition software. It may contain grammatical, syntax or spelling errors. Electronically signed by: Ilan Washington M.D. 11/10/2023 12:[address] 11/10/23 12:28 CT SCAN OF THE BRAIN WITHOUT IV CONTRAST CLINICAL HISTORY: Change in mental status. Hallucinations. COMPARISON STUDY: No priors. TECHNIQUE: Unenhanced axial CT scan of the brain is performed from the vertex to the skull base. A dose lowering technique was utilized adhering to the principles of ALARA. CT DOSE: 625.8 mGy.cm FINDINGS: Brain parenchyma: There is age-related involutional change noting minimal microangiopathic disease. There is no hemorrhage, mass effect, or evidence of acute territorial ischemia by CT criteria. Dobson-white matter differentiation is preserved. No extra-axial fluid collection is seen. Ventricles, sulci, cisterns: Prominent secondary to involutional change. Intracranial vasculature: There is atherosclerotic calcification of the cavernous carotid and vertebral arteries. Calvarium: Unremarkable. Sinuses and mastoids: The visualized paranasal sinuses are clear. The mastoid air cells are well pneumatized. Orbits: The bony orbits are grossly intact. IMPRESSION: There is no hemorrhage, mass effect, or evidence of acute territorial ischemia by CT criteria. ACT 112: Negative or not required by law. Electronically signed by: Victor Manuel Rg M.D. 11/10/2023 12:59 PM Abdomen/Pelvis CT 11/10/23 15:27 CT SCAN OF THE ABDOMEN AND PELVIS WITHOUT IV CONTRAST CLINICAL HISTORY: Urinary tract infection. COMPARISON STUDY: No priors. TECHNIQUE: CT scan of the abdomen and pelvis is performed from the lung bases to the proximal femora. Images are reviewed in the axial, sagittal, and coronal planes. IV contrast was not administered for this examination. A dose lowering technique was utilized adhering to the principles of ALARA. CT DOSE: 1352.94 mGy.cm FINDINGS: Lung bases: The heart is normal in size and without pericardial effusion. There are scattered calcified granulomas. The lung bases are otherwise clear noting bibasilar scarring/atelectasis. A small hiatal hernia is noted. Liver: The unenhanced liver is normal in size, contour, and attenuation. There is no intrahepatic biliary ductal dilatation. Gallbladder: There are calcified gallstones with no CT evidence of acute cholecystitis. Spleen: Normal in size and attenuation. Pancreas: Unremarkable. Adrenal glands: Unremarkable. Kidneys: The unenhanced kidneys are normal in size and without hydronephrosis. There is a 6 mm nonobstructing calculus in the left upper pole. There are at least 5 nonobstructing right renal calculi which measure up to 3 mm. No ureteral stone is seen. There is no evidence of contour deforming renal mass lesion. Abdominal vasculature: The abdominal aorta is normal in course and caliber noting moderate to advanced atherosclerotic calcification. Bowel: There is moderate colonic diverticulosis without CT evidence of acute diverticulitis. No bowel obstruction is seen. Mild fecal retention is seen throughout the colon. A duodenal diverticulum is incidentally noted. The appendix is well-visualized and normal. Peritoneum: There is no intraperitoneal free air or abdominal ascites. Lymphadenopathy: None. Pelvic viscera: The prostate gland is enlarged and heterogeneous. The bladder is distended, and the wall appears thickened/trabeculated indicating chronic outlet obstruction. There are bilateral fat-containing groin hernias. Skeletal structures: The skeletal structures are osteopenic. There is moderate lumbosacral spondylosis as well as scoliosis. No lytic or blastic lesions are seen. IMPRESSION: 1. No acute infectious or inflammatory findings are identified in the abdomen or pelvis. 2. Cholelithiasis. 3. Bilateral nephrolithiasis. 4. Colonic diverticulosis without CT evidence of acute diverticulitis. 5. Additional findings as above. ACT 112: Negative or not required by law. Electronically signed by: Victor Manuel Rg M.D. 11/10/2023 5:05 PM PG Care Time/CCT Total # of Minutes Spent Total Time Spent with Patient: Total time spent is greater than 50% in coordination of care (as documented) at patient's floor/unit and/or counseling patient: Coding Level of Care Code 76660 SUB INP/OBS CARE 3/50MIN Diagnoses Acute UTI N39.0 DONALDO (acute kidney injury) N17.9 Hallucinations R44.3 Hypothyroidism E03.9 Hypertension I10 Metabolic encephalopathy G93.41 Constipation K59.00 Dehydration E86.0
[2023-11-11] MEDS: CHOLECALCIFEROL 125 MCG (5,000 UNITS) TAB PO SCH (08:13)
[2023-11-11] MEDS: amLODIPine BESYLATE 5 MG TAB PO SCH (08:13)
[2023-11-11] MEDS: ROSUVASTATIN CALCIUM 10 MG TAB PO SCH (08:13)
[2023-11-11] MEDS: HEPARIN SOD 5,000 UNIT/0.5 ML VIAL SQ SCH (08:15)
[2023-11-11 08:17] LABS: Thyroid Stimulating Hormone 1.374 uIu/ml (0.300-4.500)
[2023-11-11] MEDS: DOCUSATE SODIUM 100 MG CAP PO SCH (12:49)
[2023-11-11] MEDS: cefTRIAXone SODIUM 2,000 MG/50 ML BAG IV SCH (16:01)
[2023-11-11] MEDS ORDERED: ACETAMINOPHEN 325 MG TAB PO PRN (16:18)
[2023-11-11] MEDS ORDERED: ONDANSETRON INJ 2 MG/ML 2 ML VIAL IV PRN (16:18)
[2023-11-11] MEDS: SENNA 8.6 MG TAB PO SCH (20:10)
[2023-11-12 06:53] LABS: Basophils # (auto) 0.04 K/uL (0.00-0.20); Basophils % (auto) 0.7 %; Eosinophils # (auto) 0.07 K/uL (0.00-0.50); Eosinophils % (auto) 1.2 %; Hematocrit (blood only) 38.3 % (42.0-52.0); Hemoglobin 12.5 g/dl (14.0-18.0); Immature Granulocytes # (auto) 0.01 K/uL (0.01-0.20); Immature Granulocytes % (auto) 0.2 %; Mean Corpuscular Hemoglobin 28.5 pg (25.0-34.0); Mean Corpuscular Hgb Conc 32.6 g/dL (32.0-36.0); Mean Corpuscular Volume 87.4 fL (80.0-100.0); Mean Platelet Volume 9.7 fL (9.4-12.4); Monocytes # (auto) 0.54 K/uL (0.11-0.59); Monocytes % (auto) 9.1 %; Neutrophils # (auto) 3.96 K/uL (1.40-6.50); Neutrophils % (auto) 66.8 %; Platelet Count 184 K/uL (130-400); RDW Coefficient of Variation 13.8 % (11.5-14.5); RDW Standard Deviation 44.5 fL (36.4-46.3); Red Blood Count 4.38 M/uL (4.70-6.10); White Blood Count 5.92 K/ul (4.8-10.8)
[2023-11-12 07:09] LABS: Estimated Average Glucose 120 mg/dl; Hemoglobin A1C 5.8 % (4.5-5.6)
[2023-11-12 07:12] LABS: Calcium 8.7 mg/dl (8.6-10.3); Creatinine Clr Calc Pharmacy 72.6 ml/min; Est GFR (African American) 84.4 ml/min; Est GFR (Non-African American) 72.8 ml/min; Magnesium 1.7 mg/dl (1.7-2.4); Potassium 4.1 mmol/L (3.5-5.1)
--- NOTE | 2023-11-12 08:43 | Hospitalist Progress Note ---
Date of Service November 12, 2023 Assessment & Plan (1) Metabolic encephalopathy: Plan: Presented with 2wks acute confusion/foul dark smelling urine at home and patient reported drinking more water however apparently worsened w/ hallucinations and agreed to have his daughter bring him in CT head negative for acute stroke No acute infectious findings on CTAP ESR mild elevation, CRP wnl. PSA wnl 2.37, doubt prostatitis. Procal 0.12 Cr 2.1 on admission with normal baseline, on benazapril Provided IVF hydration 2L on admission, additional 1L and appears hydration improved. Benazepril remains on hold UA+, urine cx ecoli Ceftriaxone IV 2gm daily continued, can de-escalate in am if blood cultures remain negative. WBC wnl, afebrile Lyme testing negative, however did report ticks in his clothes after mowing grass noted and added anaplasmosis/babesiosis testing as well B12 LOW - see below, can contribute to hallucinations. Curbsided neuro, rec for tx B12/UTI, consideration for MRI and can touch base in AM Low dose seroquel available for agitation/sleep and didn't sleep well last night. Cannot exclude insomnia/hospital delirium contributing as well. Asked to move to window bed if becomes available and maintain sleep/wake cycles Bowel regimen continued Improving but still w/ hallucinations. Monitor w/ start B12 replacement and continued abx. No meningeal signs to suggest meningitis at this time Monitor on repeat exams Updated daughter at bedside, CM to follow and PT/OT consulted and suggest not to return home alone at this time due to safety concerns which were conveyed to CM (2) Acute UTI: Plan: As above, positive UA w/ foul smelling urine at home Ecoli on urine cx, continue Ceftriaxone as outlined, de-esc as able (3) DONALDO (acute kidney injury): Plan: RESOLVED w/ holding home benazapril and providing IVF hydration as above -- suspect 2nd poor PO intake/dehydration and continued benazapril use Likely able to resume benazapril in AM pending renal function BP but would hold off for now given BP 108/69 this morning (4) Hallucinations: Plan: Binocular -Suspect due to current infection as above CT head without acute findings, MRI as above and can reach out to neuro in AM Rec outpt ophthalmology TSH wnl, B12 low as above and replacement started. MRI as above for further eval Monitor Avoid benzos Of note, daughter does report family hx dementia, unclear type (5) Hypothyroidism: Plan: TSH wnl, continue Synthroid (6) B12 deficiency: Plan: B12 LOW at 85, IM replacement ordered while inpatient ?contributing to aud.visual hallucinations, disorganized thought process? (7) Hypertension: Plan: Continue metoprolol and amlodipine Hold Benazepril as above but consideration to resume in AM if renal function normalized/BP stable and keeping up w/ PO intake (8) Constipation: Plan: reports has been several days since last BM (however noted 11/08), suspect worsened w/ dehydration. PSA not elevated, doubt prostatitis. hydration as above colace BID, senna HS. Miralax added daily Monitor (9) Dehydration: Plan: IMPROVED, provided total 3L since admission, improvement in PO and PO encouraged Monitor on repeat exams if needing any additional IVF however BUN/Cr back to baseline Plan VTE Prophylaxis - heparin 5000 units SQ BID while inpatient continued inpatient stay, rec rehab at [facility] at present time due to safety as well. CM to follow. Updated daughter at bedside Admission and Anticipated Discharge Date Admission Date: November 10, 2023 Supervising Physician Co-Signing Physician Notes The patient was not seen by me. The chart was reviewed. Case discussed with CLARISSE Ware. Agree with assessment and plan Subjective Eval this morning, had hallucinations and confusion overnight and thought in large room and felt unsafe and was trying to use the bathroom. Discussed urine cx and B12 testing but also checking Lyme testing. No rashes on exam but did report he does yardwork and takes his clothes off when he comes inside but he did note a couple weeks ago he came in and after changed the phone rang and he answered it and when he came back to peanut picker his pants, 2- 3 ticks fell out. Discussed checking lyme/tick testing, continues on Ceftriaxone. Daughter concerns/req neuro eval, placed. also concerns w/ safety at home as she is sole caregiver and will discuss w/ CM about ref for rehab prior to any returning home given concerns for safety. Patient denies poor sleep at baseline up until admission and worsened once his family left. Will attempt window bed if opens up/work on wake/sleep cycles. Low dose seroquel available for sundowning/agitation if needed to prevent any escalation/need for any restraints which would likely worsen his status. No CP/SOB, eating/drinking, passing gas. Working on bowel regimen. Questions/concerns addressed at this time. Physical Exam Physical Exam: General: 78yo male sitting up in bed, hallucinations overnight but remains alert/oriented at this time, knows where he is/year/month/date Head atraumatic, normocephalic, mmm, trachea midline Resp: even, unlabored, on room air CV: RRR, no significant m/r/g, no pitting edema/calf tenderness GI: +BS, slight distension but soft/nontender MSK/Neuro: nonfocal, no meningeal signs, pupils equal, CN grossly intact, following commands, moving all extremities Psych: AOx3, cooperative with exam with intermittent hallucinations, no SI/HI reported Results & Data Results & Data Vital Signs (Past 12 Hours) Vital Signs Temp Pulse Resp BP Pulse Ox O2 Del Method 11/12/23 07:16 36.5 C 70 16 108/69 94 Room Air Laboratory Results 11/12/23 Range/Units 05:52 WBC 5.92 (4.8-10.8) K/ul RBC 4.38 L (4.70-6.10) M/uL Hgb 12.5 L (14.0-18.0) g/dl Hct 38.3 L (42.0-52.0) % MCV 87.4 (80.0-100.0) fL MCH 28.5 (25.0-34.0) pg MCHC 32.6 (32.0-36.0) g/dL RDW Std Deviation 44.5 (36.4-46.3) fL RDW Coeff of Ezequiel 13.8 (11.5-14.5) % Plt Count 184 (130-400) K/uL MPV 9.7 (9.4-12.4) fL Immature Gran % (Auto) 0.2 % Neut % (Auto) 66.8 % Lymph % (Auto) 22.0 % Burt % (Auto) 9.1 % Eos % (Auto) 1.2 % Baso % (Auto) 0.7 % Neut # (Auto) 3.96 (1.40-6.50) K/uL Lymph # (Auto) 1.30 (1.20-3.40) K/uL Burt # (Auto) 0.54 (0.11-0.59) K/uL Eos # (Auto) 0.07 (0.00-0.50) K/uL Baso # (Auto) 0.04 (0.00-0.20) K/uL Immature Gran # (Auto) 0.01 (0.01-0.20) K/uL Sodium 140 (136-145) mmol/L Potassium 4.1 (3.5-5.1) mmol/L Chloride 106 (98-107) mmol/L Carbon Dioxide 27 (21-32) mmol/L Anion Gap 7 (3-11) BUN 16 (6-23) mg/dl Creatinine 1.00 (0.6-1.4) mg/dl Est Cr Clr Drug Dosing 72.6 ml/min Est GFR ( Amer) 84.4 ml/min Est GFR (Non-Af Amer) 72.8 ml/min BUN/Creatinine Ratio 16.0 (10-20) Glucose 88 (70-99(Fasting)) mg/dl Estimat Average Glucose 120 mg/dl Hemoglobin A1c 5.8 H (4.5-5.6) % Calcium 8.7 (8.6-10.3) mg/dl Magnesium 1.7 (1.7-2.4) mg/dl Vitamin B12 85 L (180-914) pg/ml Anaplasma Smear See Comment Babesia Smear See Comment Babesia microti DNA PCR Pending Lyme Disease Screen Negative (Negative) Diagnostic Findings Brain MRI 11/12/23 10:49 MR brain wo/w con HISTORY: 78 years-old Male hallucination acutely altered mental status COMPARISON: Head CT 11/10/2023 TECHNIQUE: Multiplanar multisequence MRI of the brain was obtained with and without IV contrast. FINDINGS: No restricted diffusion. Midline structures appear unremarkable. Degenerative changes of the imaged cervical spine. No acute intracranial hemorrhage, midline shift, abnormal extra-axial collection, hydrocephalus or intra-axial mass. Involutional changes. Mild to moderate T2/FLAIR hyperintense foci throughout the white matter. No pathologic blooming artifact. Cerebral venous sinuses and major arterial flow voids appear patent. Skull, orbits and soft tissues are unremarkable. Mastoid air cells and paranasal sinuses appear clear. No abnormal enhancement. IMPRESSION: 1. No acute intracranial abnormality. 2. Involutional changes with chronic microvascular ischemic disease. 3. No abnormal enhancement. ACT 112: Negative or not required by law. The above report was generated using voice recognition software. It may contain grammatical, syntax or spelling errors. Electronically signed by: Ilan Washington M.D. 11/12/2023 12:58 PM PG Care Time/CCT Total # of Minutes Spent Total Time Spent with Patient: Total time spent is greater than 50% in coordination of care (as documented) at patient's floor/unit and/or counseling patient: Coding Level of Care Code 28123 SUB INP/OBS CARE 3/50MIN Diagnoses Metabolic encephalopathy G93.41 Acute UTI N39.0 DONALDO (acute kidney injury) N17.9 Hallucinations R44.3 Hypothyroidism E03.9 B12 deficiency E53.8 Hypertension I10 Constipation K59.00 Dehydration E86.0
[2023-11-12] MEDS: CYANOCOBALAMIN 1000 MCG/ML VIAL IM SCH (10:13)
[2023-11-12] MEDS: GADOBUTROL 30ML VIAL IV ONE (12:26)
--- NOTE | 2023-11-12 12:59 | Magnetic Resonance Report ---
MR brain wo/w con HISTORY: 78 years-old Male hallucination acutely altered mental status COMPARISON: Head CT 11/10/2023 TECHNIQUE: Multiplanar multisequence MRI of the brain was obtained with and without IV contrast. FINDINGS: No restricted diffusion. Midline structures appear unremarkable. Degenerative changes of the imaged c ervical spine. No acute intracranial hemorrhage, midline shift, abnormal extra-axial collection, hydr ocephalus or intra-axial mass. Involutional changes. Mild to moderate T2/FLAIR hyperintense foci thro ughout the white matter. No pathologic blooming artifact. Cerebral venous sinuses and major arterial flow voids appear patent. Skull, orbits and soft tissues a re unremarkable. Mastoid air cells and paranasal sinuses appear clear. No abnormal enhancement. IMPRESSION: 1. No acute intracranial abnormality. 2. Involutional changes with chronic microvascular ischemic disease. 3. No abnormal enhancement. ACT 112: Negative or not required by law. The above report was generated using voice recognition software. It may contain grammatical, syntax o r spelling errors. Electronically signed by: Ilan Washington M.D. 11/12/2023 12:58 PM
[2023-11-12] MEDS: POLYETHYLENE (MIRALAX) 17 GM PACK PO SCH (13:58)
[2023-11-12] MEDS: QUEtiapine FUMARATE 25 MG TABLET PO PRN (21:42)
[2023-11-13 07:18] LABS: Hematocrit (blood only) 39.8 % (42.0-52.0); Hemoglobin 13.1 g/dl (14.0-18.0); Mean Corpuscular Hemoglobin 28.6 pg (25.0-34.0); Mean Corpuscular Hgb Conc 32.9 g/dL (32.0-36.0); Mean Corpuscular Volume 86.9 fL (80.0-100.0); Mean Platelet Volume 9.2 fL (9.4-12.4); Platelet Count 185 K/uL (130-400); RDW Coefficient of Variation 13.9 % (11.5-14.5); RDW Standard Deviation 43.7 fL (36.4-46.3); Red Blood Count 4.58 M/uL (4.70-6.10); White Blood Count 5.62 K/ul (4.8-10.8)
[2023-11-13 07:41] LABS: BUN Creatinine Ratio 17.3 (10-20); Calcium 8.8 mg/dl (8.6-10.3); Creatinine Clr Calc Pharmacy 69.8 ml/min; Est GFR (African American) 80.5 ml/min; Est GFR (Non-African American) 69.4 ml/min; Magnesium 1.8 mg/dl (1.7-2.4); Potassium 3.7 mmol/L (3.5-5.1)
[2023-11-13] MEDS: ASPIRIN 81 MG ECTAB PO SCH (07:51)
--- NOTE | 2023-11-13 09:04 | Hospitalist Progress Note ---
Date of Service November 13, 2023 Assessment & Plan (1) Metabolic encephalopathy: Plan: Presented with 2wks acute confusion/foul dark smelling urine at home and patient reported drinking more water however apparently worsened w/ hallucinations and agreed to have his daughter bring him in CT head negative for acute stroke No acute infectious findings on CTAP ESR mild elevation, CRP wnl. PSA wnl 2.37, doubt prostatitis. Procal 0.12 Cr 2.1 on admission with normal baseline, on benazapril Provided IVF hydration 2L on admission, additional 1L and appears hydration improved. Benazepril remains on hold UA+, urine cx ecoli Ceftriaxone IV 2gm daily continued, can de-escalate in am if blood cultures remain negative. WBC wnl, afebrile Lyme testing negative, however did report ticks in his clothes after mowing grass noted and added anaplasmosis/babesiosis testing as well B12 LOW - see below, can contribute to hallucinations. Curbsided neuro, rec for tx B12/UTI, consideration for MRI and touching base in AM Low dose seroquel available for agitation/sleep and didn't sleep well last night. Cannot exclude insomnia/hospital delirium contributing as well. Asked to move to window bed if becomes available and maintain sleep/wake cycles Bowel regimen continued, moving alejandra Improving but still w/ hallucinations. Monitor w/ start B12 replacement and continued abx. No meningeal signs to suggest meningitis at this time Updated daughter at bedside, CM to follow and PT/OT consulted and suggest not to return home alone at this time due to safety concerns which were conveyed to CM 11/12 MRI brain w/&w/o negative for acute cva or mass. chronic changes. B12 replacement ordered and will continue IM while inpatient and should be on high dose continued at discharge Ceftriaxone IV continued, blood cultures NGTD and if neg after today will switch to PO to complete tx for UTI Anaplasmosis/babesiosis testing pending, smear neg for inclusion bodies Discussed w/ neurology health care liaison, MRI reviewed and negative. Do suspect underlying B12 contributing to hallucinations as level is VERY LOW and could have been tipped over by current UTI/infection and would not pursue any further testing for now but if any acute changes/worsening can reach back out. Can f/u for dementia testing once other issues addressed. Benazapril remains on hold, may need reduced/discontinued given stable OFF such and wanting to prevent hypotension/falls Tolerated seroquel 12.5mg HS well last night, reports actually had to be woken up from sleep this morning. Will make scheduled at least while in hospital for mood/sleep/agitation and can increase if needed. PT/OT consulted and unsafe at present, will plan for rehab/CM following (2) Acute UTI: Plan: As above, positive UA w/ foul smelling urine at home Ecoli on urine cx, continue Ceftriaxone as outlined, de-esc tomorrow if blood cultures remain negative (3) DONALDO (acute kidney injury): Plan: RESOLVED w/ holding home benazepril and providing IVF hydration as above -- suspect 2nd poor PO intake/dehydration in setting of continued benazepril use Was going to resume benazapril however BPs appearing WELL controlled off of this and will hold off for now/continue to monitor BPs (4) Hallucinations: Plan: Binocular -Suspect due to current infection as above CT head without acute findings Rec outpt ophthalmology TSH wnl, B12 low as above and replacement started. MRI as above negative for any mass/tumor Avoid benzos Of note, daughter does report family hx dementia, unclear type outpt neuro f/u B12 REPLACEMENT ABOVE, can be contributing consuelo given such low level in elderly patient (5) Hypothyroidism: Plan: TSH wnl, continue Synthroid (6) B12 deficiency: Plan: B12 LOW at 85, IM replacement ordered while inpatient ?contributing to aud.visual hallucinations, disorganized thought process? suspect this IS contributing as discussed w/ neuro this weekend (7) Hypertension: Plan: Continue metoprolol and amlodipine Hold Benazepril as above but consideration to resume in AM if renal function normalized/BP stable and keeping up w/ PO intake (8) Constipation: Plan: reports has been several days since last BM (however noted 11/08), suspect worsened w/ dehydration. PSA not elevated, doubt prostatitis. hydration as above colace BID, senna HS. Miralax added given improvement in renal function and reporting +BM overnight Continue bowel regimen (9) Dehydration: Plan: IMPROVED, provided total 3L since admission, improvement in PO and PO encouraged Monitor on repeat exams if needing any additional IVF however BUN/Cr back to baseline and appears improved on exam Plan VTE Prophylaxis - heparin 5000 units SQ BID while inpatient continued inpatient stay awaiting rehab. Ceftriaxone IV to convert to PO abx for UTI in AM. Continue B12 replacement Planning for [facility] when bed available. Updated daughter Sharon at bedside 11/12 Admission and Anticipated Discharge Date Admission Date: November 10, 2023 Supervising Physician Co-Signing Physician Notes The patient was not seen by me. The chart was reviewed. Case discussed with CLARISSE Ware. Agree with assessment and plan Subjective Eval this morning, had some interesting hallucinations reported after supper about construction being done however ?if from when he was at MRI on first floor and then slept so well he reports having to be woken up this morning. frustrated about feeling like he is a prisoner here, and was upset he even me ntioned about the ticks.Discussed like him to be forthright and tell me his concerns and events prior to admission so we can adequately care for him but also no more testing until something acute and changing abx to pills in AM. Hydration stable but sick of water. Reports 1.5 bowel movements, got some miralax this morning. MRI brain negative for acute cva or mass. Neuro to review and we will discuss but also outpatient neuro testing. No alcohol use, 1 case bought in july, half left and his friend drank 4. No heavy use in the past. Daughter updated at bedside, will plan for [facility] once bed received. Scheduling Seroquel HS. Physical Exam Physical Exam: General: 78yo male sitting up in bed, hallucinations overnight but remains alert/oriented at this time, knows where he is/year/month/date, however frustrated with feeling like we are keeping him to do extra unnecessary testing Head atraumatic, normocephalic, mmm, trachea midline Resp: even, unlabored, on room air CV: RRR, no significant m/r/g, no pitting edema/calf tenderness GI: +BS, less distension, soft/nontender MSK/Neuro: nonfocal, no meningeal signs, pupils equal, CN grossly intact, following commands, moving all extremities Psych: AOx3, cooperative with exam with intermittent hallucinations overnight, no SI/HI reported Results & Data Results & Data Vital Signs (Past 12 Hours) Vital Signs Temp Pulse Resp BP Pulse Ox O2 Del Method 11/13/23 07:36 36.5 C 60 16 117/71 92 Room Air Laboratory Results 11/13/23 11/13/23 11/12/23 Range/Units 07:53 06:52 20:26 WBC 5.62 (4.8-10.8) K/ul RBC 4.58 L (4.70-6.10) M/uL Hgb 13.1 L (14.0-18.0) g/dl Hct 39.8 L (42.0-52.0) % MCV 86.9 (80.0-100.0) fL MCH 28.6 (25.0-34.0) pg MCHC 32.9 (32.0-36.0) g/dL RDW Std Deviation 43.7 (36.4-46.3) fL RDW Coeff of Ezequiel 13.9 (11.5-14.5) % Plt Count 185 (130-400) K/uL MPV 9.2 L (9.4-12.4) fL Sodium 138 (136-145) mmol/L Potassium 3.7 (3.5-5.1) mmol/L Chloride 104 (98-107) mmol/L Carbon Dioxide 27 (21-32) mmol/L Anion Gap 7 (3-11) BUN 18 (6-23) mg/dl Creatinine 1.04 (0.6-1.4) mg/dl Est Cr Clr Drug Dosing 69.8 ml/min Est GFR ( Amer) 80.5 ml/min Est GFR (Non-Af Amer) 69.4 ml/min BUN/Creatinine Ratio 17.3 (10-20) Glucose 88 (70-99(Fasting)) mg/dl POC Glucose 89 109 H (70-99) mg/dl Calcium 8.8 (8.6-10.3) mg/dl Magnesium 1.8 (1.7-2.4) mg/dl Anaplasma Smear A. phagocytophilum DNA Pending Babesia Smear Babesia microti DNA PCR Lyme Disease Screen (Negative) 11/12/23 11/12/23 Range/Units 17:35 05:52 WBC (4.8-10.8) K/ul RBC (4.70-6.10) M/uL Hgb (14.0-18.0) g/dl Hct (42.0-52.0) % MCV (80.0-100.0) fL MCH (25.0-34.0) pg MCHC (32.0-36.0) g/dL RDW Std Deviation (36.4-46.3) fL RDW Coeff of Ezequiel (11.5-14.5) % Plt Count (130-400) K/uL MPV (9.4-12.4) fL Sodium (136-145) mmol/L Potassium (3.5-5.1) mmol/L Chloride (98-107) mmol/L Carbon Dioxide (21-32) mmol/L Anion Gap (3-11) BUN (6-23) mg/dl Creatinine (0.6-1.4) mg/dl Est Cr Clr Drug Dosing ml/min Est GFR ( Amer) ml/min Est GFR (Non-Af Amer) ml/min BUN/Creatinine Ratio (10-20) Glucose (70-99(Fasting)) mg/dl POC Glucose 143 H (70-99) mg/dl Calcium (8.6-10.3) mg/dl Magnesium (1.7-2.4) mg/dl Anaplasma Smear See Comment A. phagocytophilum DNA Babesia Smear See Comment Babesia microti DNA PCR Pending Lyme Disease Screen Negative (Negative) Diagnostic Findings Brain MRI 11/12/23 10:49 MR brain wo/w con HISTORY: 78 years-old Male hallucination acutely altered mental status COMPARISON: Head CT 11/10/2023 TECHNIQUE: Multiplanar multisequence MRI of the brain was obtained with and without IV contrast. FINDINGS: No restricted diffusion. Midline structures appear unremarkable. Degenerative changes of the imaged cervical spine. No acute intracranial hemorrhage, midline shift, abnormal extra-axial collection, hydrocephalus or intra-axial mass. Involutional changes. Mild to moderate T2/FLAIR hyperintense foci throughout the white matter. No pathologic blooming artifact. Cerebral venous sinuses and major arterial flow voids appear patent. Skull, orbits and soft tissues are unremarkable. Mastoid air cells and paranasal sinuses appear clear. No abnormal enhancement. IMPRESSION: 1. No acute intracranial abnormality. 2. Involutional changes with chronic microvascular ischemic disease. 3. No abnormal enhancement. ACT 112: Negative or not required by law. The above report was generated using voice recognition software. It may contain grammatical, syntax or spelling errors. Electronically signed by: Ilan Washington M.D. 11/12/2023 12:58 PM PG Care Time/CCT Total # of Minutes Spent Total Time Spent with Patient: Total time spent is greater than 50% in coordination of care (as documented) at patient's floor/unit and/or counseling patient: Coding Level of Care Code 53838 SUB INP/OBS CARE 3/50MIN Diagnoses Metabolic encephalopathy G93.41 Acute UTI N39.0 DONALDO (acute kidney injury) N17.9 Hallucinations R44.3 Hypothyroidism E03.9 B12 deficiency E53.8 Hypertension I10 Constipation K59.00 Dehydration E86.0
[2023-11-13] MEDS: QUEtiapine FUMARATE 25 MG TABLET PO SCH (20:20)
--- NOTE | 2023-11-14 08:23 | Hospitalist Progress Note ---
Date of Service November 14, 2023 Assessment & Plan (1) Metabolic encephalopathy: Plan: Presented with 2wks acute confusion/foul dark smelling urine at home and patient reported drinking more water however apparently worsened w/ hallucinations and agreed to have his daughter bring him in CT head negative for acute stroke No acute infectious findings on CTAP ESR mild elevation, CRP wnl. PSA wnl 2.37, doubt prostatitis. Procal 0.12 Cr 2.1 on admission with normal baseline, on benazapril Provided IVF hydration 2L on admission, additional 1L and appears hydration improved. Benazepril remains on hold UA+, urine cx ecoli Ceftriaxone IV 2gm daily continued, can de-escalate in am if blood cultures remain negative. WBC wnl, afebrile Lyme testing negative, however did report ticks in his clothes after mowing grass noted and added anaplasmosis/babesiosis testing as well B12 LOW - see below, can contribute to hallucinations. Curbsided neuro, rec for tx B12/UTI, consideration for MRI and touching base in AM Low dose seroquel available for agitation/sleep and didn't sleep well last night. Cannot exclude insomnia/hospital delirium contributing as well. Asked to move to window bed if becomes available and maintain sleep/wake cycles Bowel regimen continued, moving alejandra Improving but still w/ hallucinations. Monitor w/ start B12 replacement and continued abx. No meningeal signs to suggest meningitis at this time Updated daughter at bedside, CM to follow and PT/OT consulted and suggest not to return home alone at this time due to safety concerns which were conveyed to CM 11/12 MRI brain w/&w/o negative for acute cva or mass. chronic changes. B12 replacement ordered and will continue IM while inpatient and should be on high dose continued at discharge Ceftriaxone IV continued, blood cultures NGTD and if neg after today will switch to PO to complete tx for UTI Anaplasmosis/babesiosis testing pending, smear neg for inclusion bodies Discussed w/ neurology production welding supervisor, MRI reviewed and negative. Do suspect underlying B12 contributing to hallucinations as level is VERY LOW and could have been tipped over by current UTI/infection and would not pursue any further testing for now but if any acute changes/worsening can reach back out. Can f/u for dementia testing once other issues addressed. Benazapril remains on hold, may need reduced/discontinued given stable OFF such and wanting to prevent hypotension/falls Tolerated seroquel 12.5mg HS well last night, reports actually had to be woken up from sleep this morning. Will make scheduled at least while in hospital for mood/sleep/agitation and can increase if needed. PT/OT consulted and unsafe at present, will plan for rehab/CM following (2) Acute UTI: Plan: As above, positive UA w/ foul smelling urine at home Ecoli on urine cx, continue Ceftriaxone as outlined, de-esc tomorrow if blood cultures remain negative (3) DONALDO (acute kidney injury): Plan: RESOLVED w/ holding home benazepril and providing IVF hydration as above -- suspect 2nd poor PO intake/dehydration in setting of continued benazepril use Was going to resume benazapril however BPs appearing WELL controlled off of this and will hold off for now/continue to monitor BPs (4) Hallucinations: Plan: Binocular -Suspect due to current infection as above CT head without acute findings Rec outpt ophthalmology TSH wnl, B12 low as above and replacement started. MRI as above negative for any mass/tumor Avoid benzos Of note, daughter does report family hx dementia, unclear type outpt neuro f/u B12 REPLACEMENT ABOVE, can be contributing consuelo given such low level in elderly patient (5) Hypothyroidism: Plan: TSH wnl, continue Synthroid (6) B12 deficiency: Plan: B12 LOW at 85, IM replacement ordered while inpatient ?contributing to aud.visual hallucinations, disorganized thought process? suspect this IS contributing as discussed w/ neuro this weekend (7) Hypertension: Plan: Continue metoprolol and amlodipine Hold Benazepril as above but consideration to resume in AM if renal function normalized/BP stable and keeping up w/ PO intake (8) Constipation: Plan: reports has been several days since last BM (however noted 11/08), suspect worsened w/ dehydration. PSA not elevated, doubt prostatitis. hydration as above colace BID, senna HS. Miralax added given improvement in renal function and reporting +BM overnight Continue bowel regimen (9) Dehydration: Plan: IMPROVED, provided total 3L since admission, improvement in PO and PO encouraged Monitor on repeat exams if needing any additional IVF however BUN/Cr back to baseline and appears improved on exam Plan VTE Prophylaxis - heparin 5000 units SQ BID while inpatient continued inpatient stay awaiting rehab. Ceftriaxone IV to convert to PO abx for UTI in AM. Continue B12 replacement Planning for [facility] when bed available. Updated daughter Sharon at bedside 11/12 Admission and Anticipated Discharge Date Admission Date: November 10, 2023 Results & Data Results & Data Vital Signs (Past 12 Hours) Vital Signs Temp Pulse Resp BP Pulse Ox O2 Del Method 11/14/23 07:39 36.5 C 76 16 134/85 97 Room Air PG Care Time/CCT Total # of Minutes Spent Total Time Spent with Patient: Total time spent is greater than 50% in coordination of care (as documented) at patient's floor/unit and/or counseling patient: Coding Diagnoses Metabolic encephalopathy G93.41 Acute UTI N39.0 DONALDO (acute kidney injury) N17.9 Hallucinations R44.3 Hypothyroidism E03.9 B12 deficiency E53.8 Hypertension I10 Constipation K59.00 Dehydration E86.0
--- NOTE | 2023-11-14 10:38 | Discharge Summary ---
Date of Service November 14, 2023 Admission HPI Per Admitting Provider Jorge Live is a 78 year old male who presents to the ER with 3-4 days of hallucinations. Prior to this having confusion for the last few weeks. He was seen by PCP today and recommended coming to the ER due to UA which appeared infected and lives alone. The patient reports seeing pictures moving on his wall and exotic animals at the bottom of the garden. At the time he felt these were real but neighbors and daughter confirmed they were not and he believes them. He has never had hallucinations before and denies any other problems with his vision. Daughter concerned about UTI as urine darker than usual and having more difficulty passing urine. He reports no prostate symptoms prior to recent onset of symptoms. He notes 2 weeks ago having foul smelling urine but this resolved. No flank pain, fever or chills. Principal Diagnosis UTI, B12 deficiency, hallucinations Discharge Exam General: 78yo male sitting up in bed, hallucinations overnight but remains alert/oriented at this time, knows where he is/year/month/date, however frustrated with feeling like we are keeping him to do extra unnecessary testing Head atraumatic, normocephalic, mmm, trachea midline Resp: even, unlabored, on room air CV: RRR, no significant m/r/g, no pitting edema/calf tenderness GI: +BS, less distension, soft/nontender MSK/Neuro: nonfocal, no meningeal signs, pupils equal, CN grossly intact, following commands, moving all extremities Psych: AOx3, cooperative with exam with intermittent hallucinations overnight, no SI/HI reported Discharge Data Allergies Allergy/AdvReac Type Severity Reaction Status Date / Time No Known Drug Allergies Allergy Verified 11/10/23 10:29 Consultations 11/10/23 15:38 ED Decision to Admit Stat Ordered Studies Chest X-Ray 11/10/23 12:00 XR chest 1V portable HISTORY: 78 years-old Male Sepsis COMPARISON: None TECHNIQUE: AP view of the chest FINDINGS: Cardiomediastinal and hilar silhouettes are within normal limits. No pneumothorax or pleural effusion. Bones appear grossly intact. Spondylitic spurring of the spine. IMPRESSION: No acute process. ACT 112: Negative or not required by law. The above report was generated using voice recognition software. It may contain grammatical, syntax or spelling errors. Electronically signed by: Ilan Washington M.D. 11/10/2023 12:[address] 11/10/23 12:28 CT SCAN OF THE BRAIN WITHOUT IV CONTRAST CLINICAL HISTORY: Change in mental status. Hallucinations. COMPARISON STUDY: No priors. TECHNIQUE: Unenhanced axial CT scan of the brain is performed from the vertex to the skull base. A dose lowering technique was utilized adhering to the principles of ALARA. CT DOSE: 625.8 mGy.cm FINDINGS: Brain parenchyma: There is age-related involutional change noting minimal microangiopathic disease. There is no hemorrhage, mass effect, or evidence of acute territorial ischemia by CT criteria. Dobson-white matter differentiation is preserved. No extra-axial fluid collection is seen. Ventricles, sulci, cisterns: Prominent secondary to involutional change. Intracranial vasculature: There is atherosclerotic calcification of the cavernous carotid and vertebral arteries. Calvarium: Unremarkable. Sinuses and mastoids: The visualized paranasal sinuses are clear. The mastoid air cells are well pneumatized. Orbits: The bony orbits are grossly intact. IMPRESSION: There is no hemorrhage, mass effect, or evidence of acute territorial ischemia by CT criteria. ACT 112: Negative or not required by law. Electronically signed by: Victor Manuel Rg M.D. 11/10/2023 12:59 PM Abdomen/Pelvis CT 11/10/23 15:27 CT SCAN OF THE ABDOMEN AND PELVIS WITHOUT IV CONTRAST CLINICAL HISTORY: Urinary tract infection. COMPARISON STUDY: No priors. TECHNIQUE: CT scan of the abdomen and pelvis is performed from the lung bases to the proximal femora. Images are reviewed in the axial, sagittal, and coronal planes. IV contrast was not administered for this examination. A dose lowering technique was utilized adhering to the principles of ALARA. CT DOSE: 1352.94 mGy.cm FINDINGS: Lung bases: The heart is normal in size and without pericardial effusion. There are scattered calcified granulomas. The lung bases are otherwise clear noting bibasilar scarring/atelectasis. A small hiatal hernia is noted. Liver: The unenhanced liver is normal in size, contour, and attenuation. There is no intrahepatic biliary ductal dilatation. Gallbladder: There are calcified gallstones with no CT evidence of acute cholecystitis. Spleen: Normal in size and attenuation. Pancreas: Unremarkable. Adrenal glands: Unremarkable. Kidneys: The unenhanced kidneys are normal in size and without hydronephrosis. There is a 6 mm nonobstructing calculus in the left upper pole. There are at least 5 nonobstructing right renal calculi which measure up to 3 mm. No ureteral stone is seen. There is no evidence of contour deforming renal mass lesion. Abdominal vasculature: The abdominal aorta is normal in course and caliber noting moderate to advanced atherosclerotic calcification. Bowel: There is moderate colonic diverticulosis without CT evidence of acute diverticulitis. No bowel obstruction is seen. Mild fecal retention is seen throughout the colon. A duodenal diverticulum is incidentally noted. The appendix is well-visualized and normal. Peritoneum: There is no intraperitoneal free air or abdominal ascites. Lymphadenopathy: None. Pelvic viscera: The prostate gland is enlarged and heterogeneous. The bladder is distended, and the wall appears thickened/trabeculated indicating chronic outlet obstruction. There are bilateral fat-containing groin hernias. Skeletal structures: The skeletal structures are osteopenic. There is moderate lumbosacral spondylosis as well as scoliosis. No lytic or blastic lesions are seen. IMPRESSION: 1. No acute infectious or inflammatory findings are identified in the abdomen or pelvis. 2. Cholelithiasis. 3. Bilateral nephrolithiasis. 4. Colonic diverticulosis without CT evidence of acute diverticulitis. 5. Additional findings as above. ACT 112: Negative or not required by law. Electronically signed by: Victor Manuel Rg M.D. 11/10/2023 5:05 PM Brain MRI 11/12/23 10:49 MR brain wo/w con HISTORY: 78 years-old Male hallucination acutely altered mental status COMPARISON: Head CT 11/10/2023 TECHNIQUE: Multiplanar multisequence MRI of the brain was obtained with and without IV contrast. FINDINGS: No restricted diffusion. Midline structures appear unremarkable. Degenerative changes of the imaged cervical spine. No acute intracranial hemorrhage, midline shift, abnormal extra-axial collection, hydrocephalus or intra-axial mass. Involutional changes. Mild to moderate T2/FLAIR hyperintense foci throughout the white matter. No pathologic blooming artifact. Cerebral venous sinuses and major arterial flow voids appear patent. Skull, orbits and soft tissues are unremarkable. Mastoid air cells and paranasal sinuses appear clear. No abnormal enhancement. IMPRESSION: 1. No acute intracranial abnormality. 2. Involutional changes with chronic microvascular ischemic disease. 3. No abnormal enhancement. ACT 112: Negative or not required by law. The above report was generated using voice recognition software. It may contain grammatical, syntax or spelling errors. Electronically signed by: Ilan Washington M.D. 11/12/2023 12:58 PM Hospital Course (1) Metabolic encephalopathy: Presented with 2wks acute confusion/foul dark smelling urine at home and patient reported drinking more water however apparently worsened w/ hallucinations and agreed to have his daughter bring him in CT head negative for acute stroke No acute infectious findings on CTAP ESR mild elevation, CRP wnl. PSA wnl 2.37, doubt prostatitis. Procal 0.12 Cr 2.1 on admission with normal baseline, on benazapril Provided IVF hydration 2L on admission, additional 1L ordered as remained dehydrated on exam and benazapril remained on hold despite normalization of renal function Ceftriaxone IV 2gm ordered while inpatient (got 4 doses) and sent on keflex for additional 3 days ro complete course Lyme negative (ticks at home reported but no bites/rashes on exam), anaplasmosis/babesia pcr pending at [facility] B12 obtained and was VERY LOW at 85, IM replacement (got 3 doses inpatient) and to continue additional 2 days IM at [facility] and continue PO after Did discuss case w/ Neuro converting supervisor this weekend, obtained MRI w/w/o which was NEGATIVE for CVA or tumor/mass. Does have underlying cataracts compliacting vision as well and needing outpt opthalmology follow up for surgery for such. Bowel regimen provided as hadn't moved bowels in several days prior to admission and moving well prior to discharge and improvement in PO intake. Did order seroquel 12.5mg HS which has helped with sleep and remains alert/oriented to person/place/time, intermittent visual hallucinations Did continue tohold his benazapril at discharge as has been stable BP off such however can monitor and if elevated can resume. BUN/Cr normalized prior to discharge Of note, patient w/ family hx dmeentia per daughter and could be progression w/ worsening acute issue prior to admission w/ infection/B12 deficiency (which can cause hallucinations) and continued tx as outlined Did review medications at [facility] and patient on 5000IU vitamin D supplementaion daily which supplementation continued on admission and calcium was NOT elevated however review last Vit D level from almost a year ago and was 51 in Jan 2023) and recommend he have this level checked prior to continuing any supplementation at [facility] which was arranged at discharge for rehab/ongoing therapy prior to returning home to ensure safety. If Vitamin D level elevated, should have supplementation stopped to prevent any issues given fat soluble and may be taking too much. That could also contribute. Patient appeared stable coginitively for discharge to [facility] for ongoing rehab. Had updated daughter Sharon daily prior to discharge and to f/u PCP Dr Ybarra for ongoing management and can have outpt neuro f/u for dementia testing Did continue seroquel 12.5mg HS at rehab w/ unfamiliar environment but may not need to be continued once at home but should continue to monitor. (2) Acute UTI: +UA w/ fould smelling urine at home. Placed on Ceftriaxone IV (4 doses provided inpatient), urine cx w/ pansensitive ecoli and blood cultures NGTD/afebrile/WBC wnl and converted to keflex to complete course at discharge (3) DONALDO (acute kidney injury): suspect 2nd to dehydration and ongoing benazapril use IVF provided as outlined above and benazapril held and tx of UTI as outlined and renal function back to baseline prior to dc. Monitor to resume if needed for BP, PO intake much improved (4) Hallucinations: Binocular -Suspect due to current infection as above, however also has b/l cataracts to note CT head without acute findings, MRI with AND without contrast NEGATIVE for acute stroke or mass/tumor. Was discussed w neuro and rec tx UTI, B12 def and suspect B12 could be contributing Avoided benzos, low dose seroquel to help with sleep cycle as above TSH wnl on check Outpt ophthalmology f/u, neuro for dementia testing if needed if ongoing issues (5) Hypothyroidism: TSH wnl, continued Synthroid (6) B12 deficiency: B12 LOW at 85, IM replacement ordered while inpatient and continued for 5 total doses (got 3 while inpatient) and then can continue 1000mcg PO daily could be contributing to hallucinations/memory issues as above (7) Hypertension: Continued metoprolol and amlodipine Hold Benazepril as above and monitor if needing to resume at rehab (8) Constipation: reports has been several days since last BM [employer] (however recorded BM 11/08) Suspect 2nd to dehydration/poor PO intake Bowel regimen provided and moving bowels more regularly and reported significant bowel movement prior to dc Improvement in PO intake and encouraged hydration at discharge Bowel regiment ot be resumed if having any ongoing issues. Calcium was normal on admission. PSA not elevated, doubt prostatitis (9) Dehydration: IMPROVED, provided total 3L since admission, improvement in PO intake and no further IVF required Encouraged continued increased PO hydration at dc, avoidance of tea/coffee (10) Vitamin D deficiency: hx of such, as above prior level almost a year ago >50 and on 5000 IU daily. Calcium was NOT ELEVATED on admission, prior borderline at 10 when vit d level was low however has been on replacement at least year with current level and previously agreed no further lab draws for 11/13 but messaged [facility] provider about placing on hold/recommendations to check level at [facility] and if elevated should be STOPPED. If elevated, certainly could be contributing to symptoms on admission Plan VTE Prophylaxis - heparin 5000 units SQ BID while inpatient Discharged to [facility], daughter to transport this afternoon. Abx for UTI, B12 replacement. Seroquel HS for sleep. bowel regimen if needed. Rec to hold Vit D replacement until level checked to ensure not elevated. Total Time Total Time Spent Total Time Spent (In Minutes): 45 Discharge Plan Discharge Items Patient Disposition: Transfer Inpatient Rehab Fac Reason For Visit: DONALDO, UTI, HALLUCINATIONS Discharge Diagnosis: Acute Urinary Tract Infection, B12 deficiency, Hallucinations Condition on Discharge: Fair Goals: You have been hospitalized for an acute medical problem. During your stay at [facility], we have made an effort to correct the problem that brought you to the hospital while keeping you as comfortable as possible. Medications were used to bring your condition under control and your discharge instructions will include directions for any medications you should take after leaving the hospital. Please make sure you see your Primary Care Provider as part of your follow up plan. Activity: As commented below Non-emergency contact: Primary Care Provider and Neurologist Call non-emergency contact if: you have any medication questions, your symptoms worsen and your pain is not controlled Follow-up/Referrals: Jaron Falk MD [Physician] - (1 month) Erica Ybarra DO [Primary Care Provider] - Diet: Regular Addtl Attending Provider Instructions: You have been hospitalized for concerns of hallucinations and underlying infection. We have found combination of issues that likey were/are contributing which are not limited to UTI, B12 deficiency, Acute kidney injury, constipation/ dehydration and likely worsened with your underlying cataracts. We have given treatment for UTI and are continuing keflex for another 3 days to complete a course for urinary tract infection. Your B12 was VERY low and we have given 3 shots and to continue 2 more shots daily and to continue oral supplementation after. We have checked an MRI of the brain and was negative for stroke or mass and dis cussed with Neurology and believes issues related to infection and hallucinations can be attributed to very low vitamin B12 level and recommended treatment of infection and vitamin deficiency. Can have follow up for dementia testing if ongoing issues. You should also have follow up with ophthalmology regarding cataracts as they are likely contributing as well to worsening vision along with above discussion. We have held your benazapril for blood pressure and your kidney function has returned to normal with hydration and we have used medications to get your bowels moving and we have your benazapril to remain on hold for now given acceptable blood pressures and can be resumed if elevated but would want to avoid low blood pressures/falls/etc. We recommend staying well hydrated and continuing a bowel regimen if needed. We started low dose medication to help with sleep called seroquel and are continuing this at discharge but you may not need this after getting out of rehab and back into your home environment. Please follow up with primary care in the next 7-10 days to monitor your status since being in the hospital. Please return to the ER with any fevers/chills, worsening confusion, inability to keep up with oral intake, or for any other symptoms concerning for you. It has been a pleasure being a part of the medical team providing for you while you have been in the hospital. Take care! Pending Studies at Discharge: Yes Studies:: Anaplasmosis/babesia PCR Stand-Alone Forms: My [facility] Skilled Items Patient informed of condition?: Yes DNR: No Discharge Level of Care: Acute rehab Communicable Disease: No Discharge Prognosis: Stable Lines: None Urinary Catheter: No Medications and DC Order Prescriptions: New quetiapine 25 mg Tablet 12.5 mg PO HS Qty: 7 0RF cephalexin 500 mg Capsule 500 mg PO QID 3 Days Qty: 12 0RF cyanocobalamin (vitamin B-12) 1,000 mcg/mL Solution 1,000 mcg IM QAM Qty: 2 0RF cyanocobalamin (vitamin B-12) 1,000 mcg capsule 1,000 mcg PO DAILY Qty: 30 0RF Continued amlodipine 10 mg tablet 10 mg PO DAILY Qty: 90 3RF levothyroxine 50 mcg tablet 50 mcg PO DAILY Qty: 90 1RF metoprolol tartrate 25 mg tablet 25 mg PO BID Qty: 180 3RF rosuvastatin 10 mg tablet 10 mg PO DAILY Qty: 90 3RF Held benazepril 40 mg tablet 40 mg PO DAILY Qty: 90 3RF Hold Instructions: Resume on 11/18/23. monitor blood pressures and can resume if elevated cholecalciferol (vitamin D3) 5,000 unit tablet 5,000 units PO DAILY Qty: 90 Hold Instructions: Resume on 11/20/23. hold until level checked to ensure needing to be continued Discharge Orders: Discharge Order (Routine); Ordered 11/14/23 Ordered By: Delmy Srinivasan Admission Data Admit Date/Time: 11/10/23 17:39 Attending Provider: Toni Lugo Admit Provider: Chavez [place] Primary Care Provider: Erica Ybarra Other Providers: Chavez [place]; [facility]; [place],[facility]; [facility] Other Interventions: Discharge Summary Assessment (RN) Last Done: 11/14/23 11:07 Supervising Physician Co-Signing Physician Notes The patient was not seen by me. The chart was reviewed. Case discussed with CLARISSE Ware. Agree with assessment and plan Coding Level of Care Code 55352 INP/OBS DISCH >30 MIN Diagnoses Metabolic encephalopathy G93.41 Acute UTI N39.0 DONALDO (acute kidney injury) N17.9 Hallucinations R44.3 Hypothyroidism E03.9 B12 deficiency E53.8 Hypertension I10 Constipation K59.00 Dehydration E86.0 Vitamin D deficiency E55.9
[2023-11-14] MEDS: cephALEXin 500 MG CAP PO SCH (12:08)
[2023-11-16 11:06] LABS: Babesia microti DNA Not Detected (Not Detected)
== END 2023-11-14 13:10 | DRG 689 ==
LOC: ED 11:45 → SUATTDRO 17:39 → 3N 17:39